=== PATIENT | female | born 1945 | race Caucasian/White ===

== ENCOUNTER → 2017-04-27 | Outpatient (CLI) | payer MEDICARE, OTHER ==
[~2017-04-27] MED LIST: ALPR.25T PO; ASP325T PO; ASP81CT PO; ASPI-999 PO; HYDR-3729 PO; HYDR12.56 PO; LOSA100T28 PO; LOSA25TA15 PO; OMEP20TA7 PO; OMEP40CA36 PO; PANT40TA3 PO
--- NOTE | 2017-04-27 17:38 | Diagnostic Imaging Report ---
INDICATION: Left lower quadrant pain, history of hysterectomy. Transabdominal and transvaginal pelvic ultrasound performed. FINDINGS: A simple-appearing unilocular cyst measuring 4.9 cm long axis in the right pelvis is present. No normal-appearing ovarian tissue found. No tissue in the right adnexa. The uterus surgically absent. IMPRESSION: Right adnexal cyst 4.9 cm maximal showing no complexity. Dictated by: Dictated on workstation # [id number]
== END ==
LOC: RAD 14:31
PROVIDERS: ATTEND Family Medicine
DX: N83.8 Other noninflammatory disorders of ovary, fallopian tube and broad ligament (principal); Z90.710 Acquired absence of both cervix and uterus
CPT/HCPCS: 76830; 76856

== ENCOUNTER → 2017-06-02 | Outpatient (CLI) | payer MEDICARE, OTHER ==
--- NOTE | 2017-06-02 14:18 | Diagnostic Imaging Report ---
PROCEDURE: CT pelvis without contrast. TECHNIQUE: Multiple contiguous axial images were obtained through the pelvis without the use of intravenous contrast. Sagittal and coronal reformations were performed. INDICATION: Left lower quadrant pain x2 months. FINDINGS: The uterus is absent. There is a cyst in the right adnexa measuring 4 cm, which has a generally benign appearance. There is diverticulosis of the sigmoid colon with thickening of the sigmoid colon bowel wall. There is no mesenteric edema at this time. There is no free fluid or free air. The small bowel visualized appears normal. The appendix is not identified, though no appendicocele or dilated structures demonstrated. No bony abnormalities are demonstrated. The femoral heads are in normal articulation bilaterally without significant degenerative change noted. IMPRESSION: 1. Diverticulosis of the sigmoid colon without changes of acute diverticulitis at this time. 2. There is a simple appearing cyst in the right adnexa measuring 4 cm. Dictated by: Dictated on workstation # [id number]
== END ==
LOC: RAD 09:17
PROVIDERS: ATTEND Family Medicine
DX: K57.30 Diverticulosis of large intestine without perforation or abscess without bleeding (principal); N83.202 Unspecified ovarian cyst, left side
CPT/HCPCS: 72192

== ENCOUNTER → 2017-08-03 | Outpatient (CLI) | payer MEDICARE, OTHER ==
--- NOTE | 2017-08-03 14:39 | Diagnostic Imaging Report ---
Transabdominal and transvaginal pelvic ultrasound. INDICATION: Follow-up ovarian cyst. FINDINGS: There is a 4.6 x 5.1 x 3.6 cm right adnexal cystic lesion with simple appearance. No thickened septations or solid nodule evident. No internal vascularity. When compared to 04/27/2017, no significant change seen. The patient has had hysterectomy. The left ovary is not seen. IMPRESSION: Simple-appearing right adnexal cystic lesion measuring 5.1 cm in size without significant change from 04/27/2017. Dictated by: Dictated on workstation # [id number]
== END ==
LOC: RAD 09:59
PROVIDERS: ATTEND Obstetrics & Gynecology
DX: N83.291 Other ovarian cyst, right side (principal)
CPT/HCPCS: 76830; 76856

== ENCOUNTER 2018-02-01 09:22 | Outpatient (CLI) | payer MEDICARE, OTHER ==
[~2018-02-01] VITALS: Ht 154.9 cm; Wt 81.6 kg
[2018-02-01] MEDS ORDERED: OMEP20CA12 PO (09:47)
[2018-02-01] MEDS ORDERED: APIX5TAB PO (09:47)
[2018-02-02] MEDS ORDERED: PANT40TA2 PO (13:05)
== END 2018-02-01 09:50 ==
LOC: PREOP 09:22
PROVIDERS: ATTEND Surgery
DX: Z01.818 Encounter for other preprocedural examination (principal); K21.9 Gastro-esophageal reflux disease without esophagitis; R05 Cough

== ENCOUNTER 2018-02-02 11:07 | Day surgery (SDC) | payer MEDICARE, OTHER ==
[~2018-02-02] VITALS: Ht 154.9 cm; Wt 81.6 kg
[~2018-02-02 11:07] MED LIST changes: +APIX5TAB PO; +OMEP20CA12 PO
--- OUTSIDE RECORDS SUMMARY | 2018-02-02 11:11 | XMS REPORT ---
Author Author FARZANA LUNA Organization [employer] Address Unknown Phone Unavailable Care Team Providers Care Components Engineer Name Role Phone FARZANA LUNA CP Unavailable Allergies No Known Allergies Problems Problem Type Condition Code Onset Dates Condition Status Problem Cough 786.2 Active Problem Need for prophylactic vaccination and inoculation, Influenza V04.81 Active Problem Unspecified viral infection, in conditions classified elsewhere and of unspecified site 079.99 Active Assessment Encounter for immunization Z23 Active Medications No Known Medications Procedures Procedure Coding System Code Date SINGLE IMMUNIZATION ADMIN CPT-4 42818 Jul 09, 2015 FLUARIX QUAD (3 & UP)-GSK-2014 CPT-4 78581 Jul 09, 2015 Results No Known Results Immunizations Vaccine Administration Date FLUARIX QUAD (3 & UP)-GSK-2014Jul 09, 2015 Summary Purpose [employer] Submission
--- OUTSIDE RECORDS SUMMARY | 2018-02-02 11:11 | XMS REPORT | Clinical Summary ---
Author Author [facility] Organization [facility] Address Unknown Phone Unavailable Care Team Providers Care Back Hoe Operator Name Role Phone Nicholas Hnaks MD PCP Gary Quezada MD Unavailable Hannah Veloz MD Unavailable Source Comments Some departments are not documenting in the electronic medical record. If you do not see the information that you expected, contact Release of Information in the Health Information Management department at [phone] for further assistance in locating additional records.[facility] Allergies Active Allergy Reactions Severity Noted Date Comments Latex RASH, ITCHING 05/06/2013 Current Medications Prescription Sig. Disp. Refills Start End Date Status Date losartan(+) (COZAAR) 100 Take 100 mg by mouth Active mg tablet daily. ALPRAZolam (XANAX) 0.25 Take 0.125 mg by mouth at Active mg tablet bedtime as needed. hydrochlorothiazide Take 12.5 mg by mouth Active (HYDRODIURIL) 12.5 mg Tab every morning. tablet ASCORBATE CALCIUM Take by mouth. Active (VITAMIN C PO) omeprazole DR(+) Take 20 mg by mouth Active (PRILOSEC) 20 mg capsule daily. aspirin 81 mg chewable Take 81 mg by mouth Active tablet daily. naproxen (NAPROSYN) 500 Take 500 mg by mouth Active mg tablet twice daily as needed. 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 History of basal cell carcinoma excision 05/31/2013 Basal cell carcinoma of [place] n[place] 05/31/2013 Family History Medical History Relation Name Comments Heart Disease Father High Cholesterol Father Heart Disease Mother Hypertension Mother Relation Name Status Comments Father Mother Social History Tobacco Use Types Packs/Day Years Used Date Never Smoker Smokeless Tobacco: Never Used Alcohol Use Drinks/Week oz/Week Comments Yes 3 Glasses of 1.8 wine Sex Assigned at Date Recorded Not on file Last Filed Vital Signs Vital Sign Reading Time Taken Blood Pressure 151/77 12/18/2014 10:19 AM CDT Pulse 74 12/18/2014 10:19 AM CDT Temperature 36.4 C (97.5 F) 06/01/2013 7:54 AM CDT Respiratory Rate - - Oxygen Saturation 99% 06/01/2013 7:54 AM CDT Inhaled Oxygen - - Concentration Weight 74.4 kg (164 lb) 12/18/2014 10:19 AM CDT Height 157.5 cm (5' 2") 12/18/2014 10:19 AM CDT Body Mass Index 30 12/18/2014 10:19 AM CDT Plan of Treatment Health Maintenance Due Date Last Done Comments HEPATITIS C SCREENING 1945 PHYSICAL (COMPREHENSIVE) 12/26/1954 EXAM PERTUSSIS VACCINE 12/26/1958 TETANUS VACCINE 12/26/1964 BREAST CANCER SCREENING 1987 COLORECTAL CANCER 12/26/1997 SCREENING SHINGLES VACCINE 2007 OSTEOPOROSIS SCREENING 12/26/2012 PREVNAR/PNEUMOVAX (#1) 12/26/2012 INFLUENZA VACCINE 07/02/2018 Results Not on filefrom Last 3 Months
--- OUTSIDE RECORDS SUMMARY | 2018-02-02 11:11 | XMS REPORT | Continuity of Care Document ---
Author Author [employer] Organization [facility] Address Unknown Phone Unavailable Care Team Providers Care Aviation Electrician Name Role Phone [employer] Unavailable Unavailable Problems Medications Allergies, Adverse Reactions, Alerts Immunizations Results Vital Signs Encounters Location Location Details Encounter Type Encounter Number Reason For Visit Attending Provider ADM Date DC Date Status Source O [id number] STEPHEN CONNER 05/06/2013 05/06/2013 Active [facility] [place] 11/07/2017 Active [facility] Procedures Plan of Care Social History Assessment and Plan Family History Advance Directives Functional Status
--- OUTSIDE RECORDS SUMMARY | 2018-02-02 11:11 | XMS REPORT ---
Author Author FARZANA LUNA Organization [employer] Address Unknown Phone Unavailable Care Team Providers Care Farmworker Fur Name Role Phone FARZANA LUNA CP Unavailable [...] Medications Procedures Procedure Coding System Code Date PCV 13 CPT-4 11681 Jul 20, 2015 SINGLE IMMUNIZATION ADMIN CPT-4 94478 Jul 20, 2015 TDAP (BOOSTRIX) CPT-4 01369 Jul 20, 2015 IMMUNIZATION ADMIN, EACH ADD (please include units) CPT-4 23105 Jul 20, 2015 Results No Known Results Immunizations Vaccine Administration Date TDAP (BOOSTRIX) Jul 20, 2015 PCV 13 Jul 20, 2015 Summary Purpose [employer] Submission
--- OUTSIDE RECORDS SUMMARY | 2018-02-02 11:12 | XMS REPORT | Continuity of Care Document ---
Author Author [facility] Address Unknown Phone Unavailable Allergies Active Description Code Type Severity Reaction Onset Reported/Identified Relationship to Patient Clinical Status Yes No Known Drug Allergies [id number] Drug Allergy Unknown N/A 05/20/2016 Medications There is no data. Problems Date Dx Coded Attending Type Code Diagnosis Diagnosed By 10/08/2010 Ot 401.9 10/08/2010 Ot 427.81 10/08/2010 Ot 786.59 10/26/2010 Ot 401.9 10/26/2010 Ot 433.30 10/26/2010 Ot 530.81 10/26/2010 Ot 785.0 10/26/2010 Ot 785.1 10/26/2010 Ot 786.59 10/26/2010 Ot V58.66 10/26/2010 Ot V58.69 01/09/2011 Ot 780.2 SYNCOPE AND COLLAPSE 04/19/2011 Ot 307.81 TENSION HEADACHE 04/19/2011 Ot 784.0 HEADACHE 05/10/2012 Ot 530.81 ESOPHAGEAL REFLUX 05/10/2012 Ot 553.3 DIAPHRAGMATIC HERNIA 05/10/2012 Ot V58.69 OTH MED,LT, CURRENT USE 07/29/2013 FARZANA LUNA APRN V04.81 FLU SHOT 07/29/2013 FORD GAMING APRN N V04.81 FLU SHOT 11/03/2014 FORD GAMING APRN N 079.99 VIRAL SYNDROME 11/03/2014 FORD GAMING APRN N 786.2 COUGH 01/19/2015 FORD GAMING APRN N 465.9 ACUTE UPPER RESPIRATORY INFECTIONS OF UNSPECIFIED SITE 03/05/2015 Ot 785.9 03/05/2015 Ot 785.1 03/05/2015 Ot 786.59 03/05/2015 Ot 785.9 03/05/2015 Ot 272.0 03/05/2015 Ot 433.10 03/05/2015 Ot 793.89 03/05/2015 Ot 793.80 03/05/2015 Ot V67.9 03/05/2015 Ot V16.41 03/05/2015 Ot V88.01 03/05/2015 Ot V72.84 03/05/2015 ALFREDO LOCKE FACC, ALI FACP CCDS Ot 401.9 03/05/2015 ALFREDO LOCKE FACC, ALI FACP CCDS Ot 786.09 03/05/2015 ALFREDO LOCKE FACC, ALI FACP CCDS Ot 401.9 03/05/2015 ALFREDO LOCKE FACC, ALI FACP CCDS Ot 786.09 03/24/2015 CARLITADELMAR TRANSFUSION AIDE Ot V76.12 01/20/2016 ALFREDO LOCKE FACC, ALI FACP CCDS Ot I10 ESSENTIAL (PRIMARY) HYPERTENSION 01/20/2016 ALFREDO LOCKE FACC, ALI FACP CCDS Ot I48.91 UNSPECIFIED ATRIAL FIBRILLATION 01/20/2016 ALFREDO LOCKE FACC, ALI FACP CCDS Ot 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 01/20/2016 ALFREDO LOCKE FACC, ALI FACP CCDS Ot M62.89 OTHER SPECIFIED DISORDERS OF MUSCLE 01/20/2016 ALFREDO LOCKE FACC, ALI FACP CCDS Ot R06.09 OTHER FORMS OF DYSPNEA 01/21/2016 ALFREDO LOCKE FACC, ALI FACP CCDS Ot I10 ESSENTIAL (PRIMARY) HYPERTENSION 01/21/2016 ALFREDO LOCKE FACC, ALI FACP CCDS Ot I48.91 UNSPECIFIED ATRIAL FIBRILLATION 01/21/2016 ALFREDO LOCKE FACC, ALI FACP CCDS Ot 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 01/21/2016 ALFREDO LOCKE FACC, ALI FACP CCDS Ot M62.89 OTHER SPECIFIED DISORDERS OF MUSCLE 01/21/2016 ALFREDO LOCKE FACC, ALI FACP CCDS Ot R06.09 OTHER FORMS OF DYSPNEA 02/03/2016 ALFREDO LOCKE FACC, ALI FACP CCDS Ot I10 ESSENTIAL (PRIMARY) HYPERTENSION 02/03/2016 ALFREDO LOCKE FACC, ALI FACP CCDS Ot I48.91 UNSPECIFIED ATRIAL FIBRILLATION 02/03/2016 ALFREDO LOCKE FACC, ALI FACP CCDS Ot 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 02/03/2016 ALFREDO LOCKE FACC, ALI FACP CCDS Ot M62.89 OTHER SPECIFIED DISORDERS OF MUSCLE 02/03/2016 ALFREDO LOCKE FACC, ALI FACP CCDS Ot R06.09 OTHER FORMS OF DYSPNEA 04/28/2016 MIRZA BERRY MD R Ot R10.11 RIGHT UPPER QUADRANT PAIN 05/01/2016 MIRZA BERRY MD R Ot R10.11 RIGHT UPPER QUADRANT PAIN 05/06/2016 MIRZA BERRY MD R Ot R10.11 RIGHT UPPER QUADRANT PAIN 05/13/2016 MIRZA BERRY MD R Ot R10.11 RIGHT UPPER QUADRANT PAIN 05/19/2016 Ot 272.0 PURE HYPERCHOLESTEROLEM 05/19/2016 Ot 793.89 OTH (ABN) FINDINGS ON RADIOLOGICAL EXAMI 05/19/2016 Ot 793.80 UNSPEC ABNORMAL MAMMOGRAM 05/19/2016 Ot V67.9 FOLLOW-UP EXAM NOS 05/19/2016 Ot 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 05/19/2016 Ot V88.01 ACQUIRED ABSENCE OF BOTH CERVIX AND UTER 05/19/2016 Ot V72.84 EXAM PRE- OPERATIVE NOS 05/19/2016 ALFREDO LOCKE FACC, ALI FACP CCDS Ot 401.9 HYPERTENSION NOS 05/19/2016 ALFREDO LOCKE FACC, ALI FACP CCDS Ot 786.09 RESPIRATORY ABNORM NEC 05/19/2016 ALFREDO LOCKE FACElise, ALI FACP CCDS Ot 401.9 HYPERTENSION NOS 05/19/2016 ALFREDO LOCKE FACC, ALI FACP CCDS Ot 786.09 RESPIRATORY ABNORM NEC 05/19/2016 DELMAR ZAZUETA TRANSFUSION AIDE Ot V76.12 OTH SCREEN MAMMO-MALIGN NEOPLASM OF [place] 05/19/2016 ALFREDO LOCKE FACC, ALI FACP CCDS Ot I10 ESSENTIAL (PRIMARY) HYPERTENSION 05/19/2016 ALFREDO LOCKE FACC, ALI FACP CCDS Ot I48.91 UNSPECIFIED ATRIAL FIBRILLATION 05/19/2016 ALFREDO MOELLERC, ALI FACP CCDS Ot 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 05/19/2016 ALFREDO LOCKE FACC, ALI FACP CCDS Ot M62.89 OTHER SPECIFIED DISORDERS OF MUSCLE 05/19/2016 ALFREDO LOCKE FACC, ALI FACP CCDS Ot R06.09 OTHER FORMS OF DYSPNEA 05/19/2016 MIRZA BERRY MD R Ot R10.11 RIGHT UPPER QUADRANT PAIN 05/19/2016 MIRZA BERRY MD R Ot R10.11 RIGHT UPPER QUADRANT PAIN 05/19/2016 GUS MONTALVO MD Ot K21.9 GASTRO-ESOPHAGEAL REFLUX DISEASE WITHOUT 05/19/2016 GUS MONTALVO MD, Ot Z01.818 ENCOUNTER FOR OTHER PREPROCEDURAL EXAMIN 05/20/2016 GUS MONTALVO MD Ot K21.0 GASTRO-ESOPHAGEAL REFLUX DISEASE WITH ES 05/20/2016 GUS MONTALVO MD Ot K29.70 GASTRITIS, UNSPECIFIED, WITHOUT BLEEDING 05/20/2016 GUS MONTALVO MD Ot K44.9 DIAPHRAGMATIC HERNIA WITHOUT OBSTRUCTION 05/23/2016 GUS MONTALVO MD Ot K21.0 GASTRO-ESOPHAGEAL REFLUX DISEASE WITH ES 05/23/2016 GUS MONTALVO MD Ot K29.70 GASTRITIS, UNSPECIFIED, WITHOUT BLEEDING 05/23/2016 GUS MONTALVO MD Ot K44.9 DIAPHRAGMATIC HERNIA WITHOUT OBSTRUCTION 05/23/2016 GUS MONTALVO MD Ot K21.0 GASTRO-ESOPHAGEAL REFLUX DISEASE WITH ES 05/23/2016 GUS MONTALVO MD Ot K29.70 GASTRITIS, UNSPECIFIED, WITHOUT BLEEDING 05/23/2016 GUS MONTALVO MD Ot K44.9 DIAPHRAGMATIC HERNIA WITHOUT OBSTRUCTION 05/25/2016 GUS MONTALVO MD Ot K40.90 UNIL INGUINAL HERNIA, W/O OBST OR GANGR, 05/25/2016 GUS MNOTALVO MD Ot K82.8 OTHER SPECIFIED DISEASES OF GALLBLADDER 05/25/2016 GUS MONTALVO MD, Ot Z01.818 ENCOUNTER FOR OTHER PREPROCEDURAL EXAMIN 05/26/2016 GUS MONTALVO MD Ot I10 ESSENTIAL (PRIMARY) HYPERTENSION 05/26/2016 GUS MONTALVO MD Ot I48.91 UNSPECIFIED ATRIAL FIBRILLATION 05/26/2016 GUS MONTALVO MD Ot K81.1 CHRONIC CHOLECYSTITIS 05/26/2016 GUS MONTALVO MD Ot Z79.899 OTHER SENIOR LIVING (CURRENT) DRUG THERAPY 05/27/2016 GUS MONTALVO MD Ot K40.90 UNIL INGUINAL HERNIA, W/O OBST OR GANGR, 05/27/2016 GUS MONTALVO MD Ot K82.8 OTHER SPECIFIED DISEASES OF GALLBLADDER 05/27/2016 GUS MONTALVO MD Ot Z01.818 ENCOUNTER FOR OTHER PREPROCEDURAL EXAMIN 05/30/2016 ADRIANA LOCKE, MIRZA R Ot R10.11 RIGHT UPPER QUADRANT PAIN 05/31/2016 GUS MONTALVO MD Ot K40.90 UNIL INGUINAL HERNIA, W/O OBST OR GANGR, 05/31/2016 GUS MONTALVO MD Ot K82.8 OTHER SPECIFIED DISEASES OF GALLBLADDER 05/31/2016 GUS MONTALVO MD, Ot Z01.818 ENCOUNTER FOR OTHER PREPROCEDURAL EXAMIN 06/02/2016 GUS MONTALVO MD Ot I10 ESSENTIAL (PRIMARY) HYPERTENSION 06/02/2016 GUS MONTALVO MD, Ot I48.91 UNSPECIFIED ATRIAL FIBRILLATION 06/02/2016 GUS MONTALVO MD, Ot K81.1 CHRONIC CHOLECYSTITIS 06/02/2016 GUS MONTALVO MD, Ot Z79.899 OTHER SENIOR LIVING (CURRENT) DRUG THERAPY 04/24/2017 Ot 272.0 PURE HYPERCHOLESTEROLEM 04/24/2017 Ot 793.89 OTH (ABN) FINDINGS ON RADIOLOGICAL EXAMI 04/24/2017 Ot 793.80 UNSPEC ABNORMAL MAMMOGRAM 04/24/2017 Ot V67.9 FOLLOW-UP EXAM NOS 04/24/2017 Ot 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 04/24/2017 Ot V88.01 ACQUIRED ABSENCE OF BOTH CERVIX AND UTER 04/24/2017 Ot V72.84 EXAM PRE- OPERATIVE NOS 04/24/2017 ALFREDO LOCKE FACC, ALEXANDRA FACP CCDS Ot 401.9 HYPERTENSION NOS 04/24/2017 ALFREDO LOCKE FACC, ALI FACP CCDS Ot 786.09 RESPIRATORY ABNORM NEC 04/24/2017 ALFREDO LOCKE FACC, ALI FACP CCDS Ot 401.9 HYPERTENSION NOS 04/24/2017 ALFREDO LOCKE FACC, ALI FACP CCDS Ot 786.09 RESPIRATORY ABNORM NEC 04/24/2017 DELMAR ZAZUETA W TRANSFUSION AIDE Ot V76.12 OTH SCREEN MAMMO-MALIGN NEOPLASM OF [place] 04/24/2017 ALFREDO LOCKE FACC, ALI FACP CCDS Ot I10 ESSENTIAL (PRIMARY) HYPERTENSION 04/24/2017 ALFREDO LOCKE FACC, ALI FACP CCDS Ot I48.91 UNSPECIFIED ATRIAL FIBRILLATION 04/24/2017 ALFREDO LOCKE FACC, ALI FACP CCDS Ot 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 04/24/2017 ALFREDO LOCKE FACElise, ALEXANDRA FACP CCDS Ot M62.89 OTHER SPECIFIED DISORDERS OF MUSCLE 04/24/2017 ALFREDO LOCKE FACC, ALEXANDRA FACP CCDS Ot R06.09 OTHER FORMS OF DYSPNEA 04/24/2017 MIRZA BERRY MD R Ot R10.11 RIGHT UPPER QUADRANT PAIN 04/24/2017 MIRZA BERRY MD R Ot R10.11 RIGHT UPPER QUADRANT PAIN 04/28/2017 MIRZA BERRY MD R Ot N83.8 OTH NONINFLAMMATORY DISORD OF OVARY, FAL 04/28/2017 ADRIANA LOCKE MIRZA R Ot Z90.710 ACQUIRED ABSENCE OF BOTH CERVIX AND UTER 05/03/2017 MIRZA BERRY MD R Ot N83.8 OTH NONINFLAMMATORY DISORD OF OVARY, FAL 05/03/2017 MIRZA BERRY MD R Ot Z90.710 ACQUIRED ABSENCE OF BOTH CERVIX AND UTER 05/26/2017 MIRZA BERRY MD R Ot N83.8 OTH NONINFLAMMATORY DISORD OF OVARY, FAL 05/26/2017 MIRZA BERRY MD R Ot Z90.710 ACQUIRED ABSENCE OF BOTH CERVIX AND UTER 06/01/2017 Ot 272.0 PURE HYPERCHOLESTEROLEM 06/01/2017 Ot 793.80 UNSPEC ABNORMAL MAMMOGRAM 06/01/2017 Ot V67.9 FOLLOW-UP EXAM NOS 06/01/2017 Ot 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 06/01/2017 Ot V88.01 ACQUIRED ABSENCE OF BOTH CERVIX AND UTER 06/01/2017 Ot V72.84 EXAM PRE- OPERATIVE NOS 06/01/2017 ALFREDO LOCKE FACC, ALI FACP CCDS Ot 401.9 HYPERTENSION NOS 06/01/2017 ALFREDO LOCKE FACC, ALI FACP CCDS Ot 786.09 RESPIRATORY ABNORM NEC 06/01/2017 ALFREDO LOCKE FACC, ALI FACP CCDS Ot 401.9 HYPERTENSION NOS 06/01/2017 ALFREDO LOCKE FACC, ALI FACP CCDS Ot 786.09 RESPIRATORY ABNORM NEC 06/01/2017 DELMAR ZAZUETA TRANSFUSION AIDE Ot V76.12 OTH SCREEN MAMMO-MALIGN NEOPLASM OF [place] 06/01/2017 ALFREDO LOCKE FACC, ALI FACP CCDS Ot I10 ESSENTIAL (PRIMARY) HYPERTENSION 06/01/2017 ALFREDO LOCKE FACC, ALEXANDRA FACP CCDS Ot I48.91 UNSPECIFIED ATRIAL FIBRILLATION 06/01/2017 ALFREDO LOCKE FACC, ALEXANDRA FACP CCDS Ot 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 06/01/2017 ALFREDO LOCKE FACC, ALEXANDRA FACP CCDS Ot M62.89 OTHER SPECIFIED DISORDERS OF MUSCLE 06/01/2017 ALFREDO LOCKE FACC, ALEXANDRA FACP CCDS Ot R06.09 OTHER FORMS OF DYSPNEA 06/01/2017 MIRZA BERRY MD R Ot R10.11 RIGHT UPPER QUADRANT PAIN 06/01/2017 MIRZA BERRY MD R Ot R10.11 RIGHT UPPER QUADRANT PAIN 06/01/2017 MIRZA BERRY MD Ot N83.8 OTH NONINFLAMMATORY DISORD OF OVARY, FAL 06/01/2017 MIRZA BERRY MD R Ot Z90.710 ACQUIRED ABSENCE OF BOTH CERVIX AND UTER 06/26/2017 MIRZA BERRY MD Ot K57.30 DVRTCLOS OF LG INT W/O PERFORATION OR AB 06/26/2017 MIRZA BERRY MD R Ot N83.202 UNSPECIFIED OVARIAN CYST, LEFT SIDE 07/27/2017 Ot 272.0 PURE HYPERCHOLESTEROLEM 07/27/2017 Ot 793.80 UNSPEC ABNORMAL MAMMOGRAM 07/27/2017 Ot V67.9 FOLLOW-UP EXAM NOS 07/27/2017 Ot 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 07/27/2017 Ot V88.01 ACQUIRED ABSENCE OF BOTH CERVIX AND UTER 07/27/2017 Ot V72.84 EXAM PRE- OPERATIVE NOS 07/27/2017 ALFREDO LOCKE FACC, ALEXANDRA FACP CCDS Ot 401.9 HYPERTENSION NOS 07/27/2017 ALFREDO LOCKE FACC, ALEXANDRA FACP CCDS Ot 786.09 RESPIRATORY ABNORM NEC 07/27/2017 ALFREDO LOCKE FACC, ALEXANDRA FACP CCDS Ot 401.9 HYPERTENSION NOS 07/27/2017 ALFREDO LOCKE FACC, ALEXANDRA FACP CCDS Ot 786.09 RESPIRATORY ABNORM NEC 07/27/2017 DELMAR ZAZUETA TRANSFUSION AIDE Ot V76.12 OTH SCREEN MAMMO-MALIGN NEOPLASM OF [place] 07/27/2017 ALFREDO LOCKE FACC, ALEXANDRA FACP CCDS Ot I10 ESSENTIAL (PRIMARY) HYPERTENSION 07/27/2017 ALFREDO LOCKE FACC, ALEXANDRA FUNG CCDS Ot I48.91 UNSPECIFIED ATRIAL FIBRILLATION 07/27/2017 ALFREDO LOCKE FACC, ALEXANDRA FUNG CCDS Ot 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 07/27/2017 ALEXANDRA FUENTES MD, FACCP CCDS Ot M62.89 OTHER SPECIFIED DISORDERS OF MUSCLE 07/27/2017 ALEXANDRA FUENTES MD, FACC, FACP CCDS Ot R06.09 OTHER FORMS OF DYSPNEA 07/27/2017 MIRZA BERRY MD R Ot R10.11 RIGHT UPPER QUADRANT PAIN 07/27/2017 MIRZA BERRY MD, Ot R10.11 RIGHT UPPER QUADRANT PAIN 07/27/2017 MIRZA BERRY MD Ot N83.8 OTH NONINFLAMMATORY DISORD OF OVARY, FAL 07/27/2017 MIRZA BERRY MD Ot Z90.710 ACQUIRED ABSENCE OF BOTH CERVIX AND UTER 07/27/2017 MIRZA BERRY MD Ot K57.30 DVRTCLOS OF LG INT W/O PERFORATION OR AB 07/27/2017 MIRZA BERRY MD R Ot N83.202 UNSPECIFIED OVARIAN CYST, LEFT SIDE 08/09/2017 SALVATORE ZAMUDIO DO S Ot N83.291 OTHER OVARIAN CYST, RIGHT SIDE 08/28/2017 SALVATORE ZAMUDIO DO S Ot N83.291 OTHER OVARIAN CYST, RIGHT SIDE 01/31/2018 MIRZA BERRY MD Ot K21.0 GASTRO-ESOPHAGEAL REFLUX DISEASE WITH ES 01/31/2018 MIRZA BERRY MD Ot R05 COUGH Procedures There is no data. Results Test Result Range Methicillin resistant Staphylococcus aureus (MRSA) screening culture - 09:20 Methicillin resistant Staphylococcus aureus (MRSA) screening culture NEG NRG Complete blood count (CBC) with automated white blood cell (WBC) differential - 05/26/16 09:45 Blood leukocytes automated count (number/volume) 5.4 10*3/uL 4.3-11.0 Blood erythrocytes automated count (number/volume) 3.96 10*6/uL 4.35-5.85 Venous blood hemoglobin measurement (mass/volume) 12.1 g/dL 11.5-16.0 Blood hematocrit (volume fraction) 36 % 35-52 Automated erythrocyte mean corpuscular volume 90 [foz_us] 80-99 Automated erythrocyte mean corpuscular hemoglobin (mass per erythrocyte) 31 pg 25-34 Automated erythrocyte mean corpuscular hemoglobin concentration measurement ( mass/volume) 34 g/dL 32-36 Automated erythrocyte distribution width ratio 12.8 % 10.0-14.5 Automated blood platelet count (count/volume) 238 10*3/uL 130-400 Automated blood platelet mean volume measurement 9.4 [foz_us] 7.4-10.4 Automated blood neutrophils/100 leukocytes 51 % 42-75 Automated blood lymphocytes/100 leukocytes 25 % 12-44 Blood monocytes/100 leukocytes 14 % 0-12 Automated blood eosinophils/100 leukocytes 8 % 0-10 Automated blood basophils/100 leukocytes 1 % 0-10 Blood neutrophils automated count (number/volume) 2.7 10*3 1.8-7.8 Blood lymphocytes automated count (number/volume) 1.4 10*3 1.0-4.0 Blood monocytes automated count (number/volume) 0.8 10*3 0.0-1.0 Automated eosinophil count 0.5 10*3/uL 0.0-0.3 Automated blood basophil count (count/volume) 0.1 10*3/uL 0.0-0.1 Whole blood basic metabolic panel - 05/26/16 09:45 Serum or plasma sodium measurement (moles/volume) 140 mmol/L 135-145 Serum or plasma potassium measurement (moles/volume) 3.9 mmol/L 3.6-5.0 Serum or plasma chloride measurement (moles/volume) 109 mmol/L 98-107 Carbon dioxide 23 mmol/L 21-32 Serum or plasma anion gap determination (moles/volume) 8 mmol/L 5-14 Serum or plasma urea nitrogen measurement (mass/volume) 22 mg/dL 7-18 Serum or plasma creatinine measurement (mass/volume) 0.76 mg/dL 0.60-1.30 Serum or plasma urea nitrogen/creatinine mass ratio 29 NRG Serum or plasma creatinine measurement with calculation of estimated glomerular filtration rate > NRG Serum or plasma glucose measurement (mass/volume) 89 mg/dL 70-105 Serum or plasma calcium measurement (mass/volume) 9.8 mg/dL 8.5-10.1 Encounters ACCT No. Visit Date/Time Discharge Status Pt. Type Provider Facility Loc./Unit Complaint [id number] 01/19/2015 08:22:00 01/19/2015 23:59:59 CLS Outpatient FORD GAMING APRN [id number] 11/03/2014 13:13:00 11/03/2014 23:59:59 CLS Outpatient FARZANA LUNA APRN Bertha [id number] 07/29/2013 15:12:00 07/29/2013 23:59:59 CLS Outpatient FARZANA LUNA APRN [facility]tha [facility] 03/06/2015 04:03:48 ACT Document Registration [id number] 10/05/2016 12:28:00 10/05/2016 23:59:00 DIS Outpatient Aquiles Berry [id number] 02/01/2018 09:22:00 02/01/2018 09:50:00 DIS Outpatient GUS MONTALVO MD [facility] PREOP EGD [id number] 01/30/2018 10:33:00 01/30/2018 23:59:59 CLS Outpatient MIRZA BERRY MD [facility] RAD REFLUX ESOPHAGITIS [id number] 08/03/2017 09:59:00 08/03/2017 23:59:59 CLS Outpatient GUILHERMESALVATORE MCCARTY DO S [facility] RAD SIMPLE OVARIAN CYST [id number] 06/02/2017 09:17:00 06/02/2017 23:59:59 CLS Outpatient MIRZA BERRY MD [facility] RAD PELVIC PAIN IN FEMALE [id number] 04/27/2017 14:31:00 04/27/2017 23:59:59 CLS Outpatient MIRZA BERRY MD [facility] RAD PAIN OL QUANDRANT [id number] 07/22/2016 18:36:00 07/22/2016 23:59:59 CLS Outpatient COLTHARP DAVID GASTELUM [facility] QUICK WHEEZY COUGH, BODY ACHES [id number] 05/26/2016 08:57:00 05/26/2016 15:00:00 DIS Outpatient GUS MONTALVO MD [facility] SDC BILIARY DYSKNESIA [id number] 05/25/2016 09:00:00 05/25/2016 12:15:00 DIS Outpatient GUS MONTALVO MD [facility] PREOP DYSKNESIA [id number] 05/20/2016 12:10:00 05/20/2016 14:40:00 DIS Outpatient GUS MONTALVO MD [facility] SDC REFLUX [id number] 05/19/2016 06:11:00 05/19/2016 12:50:00 DIS Outpatient GUS MONTALVO MD [facility] PREOP REFLUX [id number] 05/05/2016 11:46:00 05/05/2016 23:59:59 CLS Outpatient MIRZA BERRY MD [facility] CARD RUQ PAIN [id number] 04/25/2016 15:53:00 04/25/2016 23:59:59 CLS Outpatient MIRZA BERRY MD [facility] RAD RUQ PAIN [id number] 01/19/2016 08:11:00 01/19/2016 23:59:59 CLS Outpatient ALFREDO LOCKE FACC, ALEXANDRA FUNG CCDS [facility] CARD AFIB,HTN, EXCERSICE INDUCED LEG FATIGUE [id number] 03/05/2015 10:20:00 03/05/2015 23:59:59 CLS Outpatient DELMAR ZAZUETA [facility] RAD SCREENING [id number] 03/20/2014 07:33:00 03/20/2014 23:59:59 CLS Outpatient ALEXANDAR FUENTES MD, FACC FACP CCDS [facility] CARD DYPSENIA [id number] 03/18/2014 09:13:00 03/18/2014 23:59:59 CLS Outpatient ALFREDO LOCKE FACC, ALEXANDRA FACVashti CCDS [facility] CARD HYPERTENSION DYSPENIA [id number] 02/02/2018 13:15:00 PEN Preadmit GUS MONTALVO MD [facility] ENDO REFLUX/COUGH [id number] 03/05/2015 10:20:00 Document Registration [id number] 07/06/2012 10:30:00 Document Registration [id number] 05/09/2012 06:42:00 Document Registration [id number] 05/08/2012 08:11:00 Document Registration [id number] 04/24/2012 14:55:00 Document Registration [id number] 04/24/2012 10:30:00 Document Registration [id number] 11/10/2011 07:11:00 Document Registration [id number] 04/19/2011 11:07:00 Document Registration [id number] 11/25/2010 08:42:00 Document Registration [id number] 11/10/2010 07:30:00 Document Registration [id number] 10/26/2010 08:07:00 Document Registration [id number] 10/26/2010 08:03:00 Document Registration [id number] 10/18/2010 13:03:00 Document Registration [id number] 10/18/2010 12:58:00 Document Registration [id number] 10/06/2010 10:10:00 Document Registration
--- NOTE | 2018-02-02 11:15 | Conscious Sedation/ASA ---
Conscious Sedation Pre-Proced Time Reviewed: 11:10 ASA Class: 2 Airway Mallampati Classification: (robinson appropriate class) I. II. III, IV Lungs Heart ASA score ASA 1: a normal healthy patient ASA 2: a patient with a mild systemic disease (mid diabetes, controlled hypertension, obesity ASA 3: a patient with a severe systemic disease that limits activity (angina , COPD, prior Myocardial infarction) ASA 4: a patient with an incapacitating disease that is a constant threat to life (CHF, renal failure) ASA 5: a moribund patient not expected to survive 24 hrs. (ruptured aneurysm) ASA 6: a declared brain patient whose organs are being harvested. For emergent operations, add the letter E after the classification Grade 2 Sedation Plan: Analgesia, Amnesia, Plan communicated to team members, Discussed options with patient/fam, Discussed risks with patient/fam Note The patient is an appropriate candidate to undergo the planned procedure, sedation, and anesthesia. The patient immediately re-assessed prior to indication. GUS MONTALVO MD February 02, 2018 11:15 am
--- NOTE | 2018-02-02 11:16 | Progress Note-Pre Operative ---
Pre-Operative Progress Note H&P Reviewed The H&P was reviewed, patient examined and no changes noted. Date Seen by Provider: February 02, 2018 Time Seen by Provider: 11:10 Date H&P Reviewed: February 02, 2018 Time H&P Reviewed: 11:10 Pre-Operative Diagnosis: GERD, chronic cough GUS MONTALVO MD February 02, 2018 11:16 am
[2018-02-02] MEDS ORDERED: NS IV 500 ML 500 ML IV PRN (11:24)
[2018-02-02] MEDS ORDERED: NS IV 500 ML 500 ML ONE (11:24)
[2018-02-02] MEDS ORDERED: MIDAZOLAM 2 MG/2 ML (VERSED) VIAL ONE ×4 (11:27→12:25)
[2018-02-02] MEDS ORDERED: fentaNYL INJECTION 100 MCG/2 ML AMP ONE (11:28)
[2018-02-02] MEDS ORDERED: LIDOCAINE JELLY 2% (XYLOCAINE) 5 ML TUBE ONE (11:28)
[2018-02-02] MEDS ORDERED: HURRICAINE EXT TUBE (BENZOCAINE) ONE (11:28)
[2018-02-02] MEDS ORDERED: ONDANSETRON 4 MG/2 ML (SDV) Z0FRAN IV PRN (11:30)
[2018-02-02] MEDS ORDERED: ACETAMINOPHEN 325 MG TABLET/CAPLET (TYLENOL) PO PRN (11:30)
[2018-02-02] MEDS ORDERED: morphine INJ 10 MG/ML 1ML (SYR OR VIAL) IV PRN (11:30)
[2018-02-02] MEDS ORDERED: LIDOCAINE JELLY 2% (XYLOCAINE) 5 ML TUBE MM PRN (11:30)
[2018-02-02] MEDS ORDERED: HURRICAINE EXT TUBE (BENZOCAINE) XX PRN (11:30)
[2018-02-02] MEDS ORDERED: HYDROcodone/APAP 5 MG/325 MG (LORTAB) TAB PO PRN (11:30)
[2018-02-02 11:38] VITALS: BP 163/83
[2018-02-02] MEDS: fentaNYL INJECTION 100 MCG/2 ML AMP IVP PRN ×2 (12:10→12:25)
[2018-02-02] MEDS: MIDAZOLAM 2 MG/2 ML (VERSED) VIAL IVP PRN ×4 (12:12→12:35)
--- NOTE | 2018-02-02 13:04 | Progress Note-Post Operative ---
Post-Operative Progess Note Surgeon (s)/Side Show Entertainer (s) Surgeon GUS MONTALVO MD Side Show Entertainer: none Pre-Operative Diagnosis GERD, chronic cough Post-Operative Diagnosis reflux esophagitis(class B), mild distal eosphageal stricture, moderate HH(3cm), moderate gastritis. Procedure & Operative Findings Date of Procedure 02/02/18 Procedure Performed/Findings EGD with bx and balloon dilatation. Anesthesia Type CS Estimated Blood Loss Estimated blood loss (mL): minimal Specimens/Packing Specimens Removed GE jxn, antrum GUS MONTALVO MD February 02, 2018 1:04 pm
[2018-02-02] MEDS ORDERED: PANT40TA2 PO (13:05)
--- NOTE | 2018-02-02 13:05 | Discharge Inst-Surgical ---
D/C Lap Instructions-KIDO New, Converted, or Re-Newed RX: RX on Chart Follow Up Appt in 6 weeks Activity as tolerated High Fiber Diet 25g or more per day Avoid Alcohol, Caffeine, Spicy [employer] and Acid foods. Drink 64 fluid oz or more of fluids per day. Symptoms to Report: Fever over 101 degree F, Nausea/Vomiting If any problems/questions: Contact your physician or go to Emergency Room GUS MONTALVO MD February 02, 2018 1:05 pm
[2018-02-02 13:30] VITALS: BP_SYST 120; BP_SYST 140; BP_DIAS 54; BP_DIAS 70
[2018-02-02 13:44] VITALS: BP 120/54
--- NOTE | 2018-02-02 21:45 | OPERATIVE REPORT ---
DATE OF SERVICE: 02/02/2018 ATTENDING PRIMARY CARE PHYSICIAN: Dr. Berry. PREOPERATIVE DIAGNOSES: Dysphagia, gastroesophageal reflux disease, chronic cough. POSTOPERATIVE DIAGNOSES: Reflux esophagitis class B intrathoracic GE junction, mild distal esophageal stricture, moderate size hiatal hernia approximately 3 cm in size. PROCEDURE: EGD with biopsy and balloon dilatation. SURGEON: Gus Montalvo MD ANESTHESIA: Conscious sedation. ESTIMATED BLOOD LOSS: Minimal. FINDINGS: Reflux esophagitis class B, mild distal esophageal stricture, hiatal hernia approximately 3 cm in size, moderate severity gastritis. Pylorus and duodenum appeared normal with no distal obstructions. DISPOSITION: The patient tolerated the procedure well. INDICATIONS: The patient is a 72-year-old female known to us. We had initially seen her for reflux and regurgitation as well as dysphagia. We did an EGD on her in 2009 where a hiatal hernia was identified and then in 2011 with similar findings. She did have worsening pain more in the right upper abdominal quadrant and was found to have gallbladder polyps and underwent a cholecystectomy on 02/24/2016. She was seen in the office recently and reported a 9-month history of cough as well as reflux and epigastric burning sensation after food bolus. DESCRIPTION OF PROCEDURE: The patient was brought to the endoscopy suite, laid in the left lateral decubitus position. After adequate IV pain and sedating medications and conscious sedation anesthesia, the mouthpiece was applied. The endoscope was then placed in the mouth visualizing the pharynx and hypopharyngeal region. Vocal cords, epiglottis and vallecula identified and appeared to be normal. The endoscope was then gently intubated in the esophageal opening, esophagus insufflated. The endoscope was then advanced to the first, second and third portions of the esophagus. At the level of the GE junction, a reflux esophagitis class B was identified. There was also a Schatzki's ring and distal esophageal stricture identified. This was biopsied with forceps with visualization of good hemostasis. The endoscope was then advanced in the stomach and endoscope retroflexed and there appeared to be a hiatal hernia that was of significant size and moderate at 3 cm. The Schatzki's ring was also identified on the retroflex view. A moderate gastritis was also noted. There were no ulcers, polyps or any neoplasms identified. A biopsy was taken of the antrum with forceps with visualization of good hemostasis. The endoscope was then advanced to the pylorus and into the first and second portion of the duodenum, which appeared normal with no distal obstructions. We then proceeded with dilatation of esophageal stricture. A CRE fixed guidewire balloon was then placed in the stomach and pulled back to the area of the stricture. We first proceeded to 3 atmospheres of pressure with mild resistance. We then proceeded to 4.5 atmospheres of pressure with moderate resistance, which was 19 mm in luminal diameter and left this in place for approximately 60 seconds. The balloon was desufflated and removed. No mucosal tears identified as well as no bleeding. The endoscope was then slowly withdrawn while taking a second look and suctioning of residual air with no additional findings. The patient tolerated the procedure well. We will again proceed with medical management with necessary lifestyle and diet accommodation including small and more frequent meals, avoidance of eating at night as well as head elevation while lying supine. She also needs to avoid caffeinated beverages, spicy, greasy and acidic foods. We will see how the balloon dilatation will help her, however, she does have a significant size hiatal hernia and this appears to be the root cause of her symptoms. If she continues to be symptomatic and she wants to have this repaired fpc, we will offer her a hiatal hernia repair. Before proceeding with this, we would have her undergo esophageal manometry studies to rule out any esophageal dysmotility disorders. Also because of her high BMI, she may opt for hiatal hernia repair with gastric sleeve resection to decrease the incidence of recurrence. Job ID: [id number] DocumentID: [id number] Dictated Date: 02/02/2018 12:54:40 Medical Equipment Sales Date: 02/02/2018 21:44:08 Dictated By: GUS MONTALVO MD [facility]Jose
== END 2018-02-02 14:02 | disposition home or self-care (01) ==
LOC: ENDO 11:07
PROVIDERS: ATTEND Surgery
DX: K22.2 Esophageal obstruction (principal); K21.0 Gastro-esophageal reflux disease with esophagitis; K44.9 Diaphragmatic hernia without obstruction or gangrene; I48.91 Unspecified atrial fibrillation; I10 Essential (primary) hypertension; Z79.01 Long term (current) use of anticoagulants; Z79.899 Other long term (current) drug therapy
CPT/HCPCS: 88305; 88342

== ENCOUNTER → 2018-03-07 | Outpatient (CLI) | payer MEDICARE, OTHER ==
[~2018-03-07] MED LIST changes: +CATHETER FLUSH 10 ML SYR IV PRN; +IOHEXOL 350 MG/ML 100 ML (OMNIPAQUE 350) VIAL IV ONE; +NS 250 ML (IVPB) BAG IV ONE; +PANT40TA2 PO; +RT-ALBUTEROL SULF 2.5 MG/3 ML PRE-MIX VIAL INH ONE; +RT-ALBUTEROL SULF 2.5 MG/3 ML PRE-MIX VIAL ONE
[2018-03-07 15:53] LABS: BUN/CREATININE RATIO 23; CREATININE SERUM 0.81 MG/DL (0.60-1.30); GFR ESTIMATED > 60
--- NOTE | 2018-03-07 17:41 | Diagnostic Imaging Report ---
PROCEDURE: CT chest with contrast only. TECHNIQUE: Multiple contiguous axial images were obtained through the chest after administration of intravenous contrast. INDICATION: Cough. COMPARISON: None. FINDINGS: There is minimal cardiac enlargement. No pericardial effusion is seen. There is no lymphadenopathy. Central airways are grossly normal. There is some minimal subtle infiltrate seen in the medial right lung base. This could represent inflammatory or infectious etiology. Followup is recommended. The left lung is clear. There is no mass, nodule or effusion. Osseous structures and visualized upper abdominal solid organs are grossly unremarkable. The gallbladder is surgically absent. There is a small hiatal hernia. IMPRESSION: Subtle infiltrate in medial right lung base. Followup recommended. Dictated by: Dictated on workstation # [id number]
== END ==
LOC: RAD 15:18
PROVIDERS: ATTEND Nurse Practitioner Family
DX: R91.8 Other nonspecific abnormal finding of lung field (principal); J98.4 Other disorders of lung
CPT/HCPCS: 36415; 71260; 82565; 84520; 94060; 94726; 94729

== ENCOUNTER → 2018-05-15 | Outpatient (CLI) | payer MEDICARE, OTHER ==
[~2018-05-15] MED LIST changes: -CATHETER FLUSH 10 ML SYR IV PRN; -IOHEXOL 350 MG/ML 100 ML (OMNIPAQUE 350) VIAL IV ONE; -NS 250 ML (IVPB) BAG IV ONE; -RT-ALBUTEROL SULF 2.5 MG/3 ML PRE-MIX VIAL INH ONE; -RT-ALBUTEROL SULF 2.5 MG/3 ML PRE-MIX VIAL ONE
--- NOTE | 2018-05-15 11:29 | Diagnostic Imaging Report ---
PROCEDURE: CT chest without contrast. TECHNIQUE: Multiple contiguous axial images were obtained through the chest without the use of intravenous contrast. INDICATION: Cough and fatigue. FINDINGS: There are no discrete pulmonary nodules or masses. There is a faint infiltrate in medial aspect of the right lung base. There is no pleural or pericardial fluid. There is no pneumothorax. Heart size is normal. There is no pathologically enlarged adenopathy in the chest. There are degenerative changes in the spine. There is some fatty infiltration of the liver. Remainder of the intra-abdominal structures are unremarkable. IMPRESSION: Faint infiltrate in the medial aspect of the right lung base. This is unchanged when compared to prior examination. Mild fatty infiltration of the liver. Degenerative changes in the spine. Dictated by: Dictated on workstation # [id number]
== END ==
LOC: RAD 09:49
PROVIDERS: ATTEND Nurse Practitioner Family
DX: R91.8 Other nonspecific abnormal finding of lung field (principal)
CPT/HCPCS: 71250

== ENCOUNTER 2018-06-03 12:27 | Inpatient (IN) | payer MEDICARE, OTHER ==
[~2018-06-03] VITALS: Ht 157.5 cm; Wt 81.7 kg
[~2018-06-03 12:27] MED LIST changes: -LOSA100T28 PO; +LOSA100T8 PO
[2018-06-03] MEDS ORDERED: CATHETER FLUSH 10 ML SYR IV PRN (14:00)
[2018-06-03] MEDS ORDERED: IOHEXOL 350 MG/ML 100 ML (OMNIPAQUE 350) VIAL IV ONE (14:00)
[2018-06-03] MEDS ORDERED: NS 250 ML (IVPB) BAG IV ONE (14:00)
[2018-06-03 14:03] LABS: BASOPHILS # (AUTO) 0.1 10^3/uL (0.0-0.1); BASOPHILS % (AUTO) 1 % (0-10); EOSINOPHILS # (AUTO) 0.5 10^3/uL (0.0-0.3); EOSINOPHILS % (AUTO) 6 % (0-10); HEMATOCRIT 38 % (35-52); HEMOGLOBIN 13.1 G/DL (11.5-16.0); LYMPHOCYTES # (AUTO) 1.3 X 10^3 (1.0-4.0); LYMPHOCYTES % (AUTO) 17 % (12-44); MEAN CORPUSCULAR HGB CONC 34 G/DL (32-36); MEAN CORPUSCULAR VOLUME 89 FL (80-99); MEAN PLATELET VOLUME 9.6 FL (7.4-10.4); MONOCYTES # (AUTO) 0.8 X 10^3 (0.0-1.0); MONOCYTES % (AUTO) 10 % (0-12); NEUTROPHILS # (AUTO) 5.2 X 10^3 (1.8-7.8); NEUTROPHILS % (AUTO) 66 % (42-75); PLATELET COUNT 261 10^3/uL (130-400); RED CELL DISTRIBUTION WIDTH 13.3 % (10.0-14.5); WHITE BLOOD COUNT 7.8 10^3/uL (4.3-11.0)
[2018-06-03 14:11] LABS: BILIRUBIN,URINE NEGATIVE (NEGATIVE); CLARITY,URINE CLEAR; COLOR,URINE YELLOW; GLUCOSE, URINE (UA) NEGATIVE (NEGATIVE); KETONES,URINE NEGATIVE (NEGATIVE); LEUKOCYTE ESTERASE ,URINE 1+ (NEGATIVE); NITRITE,URINE NEGATIVE (NEGATIVE); PH,URINE 7 (5-9); PROTEIN,URINE NEGATIVE (NEGATIVE); UROBILINOGEN,URINE NORMAL (NORMAL)
[2018-06-03 14:16] LABS: MEAN CORPUSCULAR HEMOGLOBIN 30 PG (25-34)
[2018-06-03 14:17] LABS: ALANINE AMINOTRANSFERASE 22 U/L (0-55); ALBUMIN 3.9 GM/DL (3.2-4.5); ALKALINE PHOSPHATASE 71 U/L (40-136); AMYLASE 32 U/L (25-125); BILIRUBIN,TOTAL 0.4 MG/DL (0.1-1.0); BUN/CREATININE RATIO 24; CALCIUM 10.1 MG/DL (8.5-10.1); CARBON DIOXIDE 23 MMOL/L (21-32); CHLORIDE 108 MMOL/L (98-107); CREATININE SERUM 0.74 MG/DL (0.60-1.30); GFR ESTIMATED > 60; GLUCOSE 88 MG/DL (70-105); LIPASE 13 U/L (8-78); POTASSIUM 3.9 MMOL/L (3.6-5.0); SODIUM 139 MMOL/L (135-145)
[2018-06-03 14:22] LABS: BACTERIA,URINE NEGATIVE /HPF; SQUAMOUS EPITHELIAL CELL,UR 0-2 /HPF; WBC,URINE 0-2 /HPF
--- NOTE | 2018-06-03 14:33 | ED Abdominal Pain ---
General Chief Complaint: Abdominal/GI Problems Stated Complaint: POSS BULDGING HERNIA, UPPER ABD Nursing Triage Note: BULGE IN ABDOMEN. COULD SEE BULGE WHEN LAYING DOWN. 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 She has seen Dr. GAMBINO for an abdominal hernia in the past reports she has not had any surgical corrections for this hernia. She reports that when the pain was at its worst she did actually see a bulge in her abdomen just above her umbilicus. She reports she lied flat on the couch for about 45 minutes prior to coming emergency room and her abdominal pain subsided and the bulging in her abdomen went away. Timing/Duration: 4-6 Hours, Resolved Prior to Arrival Severity/Quality: Severe, Sharp Location: Periumbilical Radiation: No Radiation Activities at Onset: None Associated Symptoms: Denies Symptoms Allergies and Home Medications Allergies Coded Allergies: No Known Drug Allergies (Verified , 06/03/18) Home Medications Alprazolam 0.25 Mg Tablet, 0.25 MG PO HS, (Reported) Apixaban 5 Mg Tablet, 5 MG PO BID, (Reported) Hydrochlorothiazide 12.5 Mg Tablet, 12.5 MG PO DAILY, (Reported) Hydrocodone Bit/Acetaminophen 1 Ea Tablet, 1 EACH PO Q4H Prescribed by: GUS GAMBINO on 06/04/18 1115 Hydrocodone/Acetaminophen 1 Each Tablet, 1 EACH PO PRN, (Reported) Losartan Potassium 100 Mg Tablet, 100 MG PO DAILY, (Reported) Pantoprazole Sodium 40 Mg Tablet.dr, 40 MG PO DAILY Prescribed by: GUS GAMBINO on 02/02/18 1305 Patient Home Medication List Home Medication List Reviewed: Yes Review of Systems Review of Systems Constitutional: see HPI; No chills, No fever Gastrointestinal: See HPI, Abdomen Distended (bulge in her abdominal wall.); Denies Difficulty Swallowing, Denies Nausea Past Fwoyanr-Qrtacy-Lvvwiz Hx Past Med/Social Hx: Reviewed Nursing Past Med/Soc Hx Patient Social History Recent Foreign Travel: No Contact w/Someone Who Travel: No Recent Infectious Disease Expo: No Recent Hopitalizations: No Immunizations Up To Date Date of Pneumonia Vaccine: May 09, 2011 Date of Influenza Vaccine: Jul 17, 2017 Seasonal Allergies Seasonal Allergies: Yes Past Medical History Surgeries: Yes (BILAT ANKLE, 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) Gallbladder Respiratory: Yes Asthma, Sleep Apnea Cardiac: Yes Atrial Fibrillation, Hypertension Neurological: No : No Reproductive Disorders: No Gastrointestinal: Yes Abdominal Hernia, Gastroesophageal Reflux, Hiatal Hernia Musculoskeletal: Yes (ARTHRITIS IN FEET) Arthritis Endocrine: No Cancer: Yes Skin What Type of Treatment Did You: Surgical Intervention Psychosocial: No Integumentary: No Blood Disorders: No Adverse Reaction/Blood Tranf: No Family Medical History Reviewed Nursing Family Hx Physical Exam Vital Signs Vital Signs - First Documented 06/03/18 12:46 Temp 97.3 Pulse 71 Resp 20 B/P (MAP) 166/78 (107) O2 Delivery Room Air Capillary Refill : Less Than 3 Seconds Height/Weight/BMI Height: 5'1.00" Weight: 180lbs. 0oz. 81.089158uo; 34.0 BMI Method:Stated General Appearance: WD/WN, no apparent distress Neck: non-tender, full range of motion, supple, normal inspection Respiratory: chest non-tender, lungs clear, normal breath sounds, no respiratory distress, no accessory muscle use Cardiovascular: normal peripheral pulses, regular rate, rhythm, no edema, no gallop, no JVD, no murmur Gastrointestinal: normal bowel sounds, non tender, soft, no organomegaly, no pulsatile mass, mass (patient has a golf ball size area that is bulging just above her umbilicus. It is nontender when I palpate and her pain has subsided. I am unable to reduce the area on exam.) Back: normal inspection, no CVA tenderness, no vertebral tenderness Neurologic/Psychiatric: alert, normal mood/affect, oriented x 3 Skin: normal color, warm/dry Progress/Results/Core Measures Results/Orders Lab Results Laboratory Tests Test 06/03/18 13:50 06/03/18 14:05 Range/Units White Blood Count 7.8 4.3-11.0 10^3/uL Red Blood Count 4.30 L 4.35-5.85 10^6/uL Hemoglobin 13.1 11.5-16.0 G/DL Hematocrit 38 35-52 % Mean Corpuscular Volume 89 80-99 FL Mean Corpuscular Hemoglobin 30 25-34 PG Mean Corpuscular Hemoglobin Concent 34 32-36 G/DL Red Cell Distribution Width 13.3 10.0-14.5 % Platelet Count 261 130-400 10^3/uL Mean Platelet Volume 9.6 7.4-10.4 FL Neutrophils (%) (Auto) 66 42-75 % Lymphocytes (%) (Auto) 17 12-44 % Monocytes (%) (Auto) 10 0-12 % Eosinophils (%) (Auto) 6 0-10 % Basophils (%) (Auto) 1 0-10 % Neutrophils # (Auto) 5.2 1.8-7.8 X 10^3 Lymphocytes # (Auto) 1.3 1.0-4.0 X 10^3 Monocytes # (Auto) 0.8 0.0-1.0 X 10^3 Eosinophils # (Auto) 0.5 H 0.0-0.3 10^3/uL Basophils # (Auto) 0.1 0.0-0.1 10^3/uL Sodium Level 139 135-145 MMOL/L Potassium Level 3.9 3.6-5.0 MMOL/L Chloride Level 108 H 98-107 MMOL/L Carbon Dioxide Level 23 21-32 MMOL/L Anion Gap 8 5-14 MMOL/L Blood Urea Nitrogen 18 7-18 MG/DL Creatinine 0.74 0.60-1.30 MG/DL Estimat Glomerular Filtration Rate > 60 BUN/Creatinine Ratio 24 Glucose Level 88 70-105 MG/DL Calcium Level 10.1 8.5-10.1 MG/DL Corrected Calcium 10.2 H 8.5-10.1 MG/DL Total Bilirubin 0.4 0.1-1.0 MG/DL Aspartate Amino Transf (AST/SGOT) 19 5-34 U/L Alanine Aminotransferase (ALT/SGPT) 22 0-55 U/L Alkaline Phosphatase 71 40-136 U/L Total Protein 7.0 6.4-8.2 GM/DL Albumin 3.9 3.2-4.5 GM/DL Amylase Level 32 25-125 U/L Lipase 13 8-78 U/L Urine Color YELLOW Urine Clarity CLEAR Urine pH 7 5-9 Urine Specific [place] 1.010 L 1.016-1.022 Urine Protein NEGATIVE NEGATIVE Urine Glucose (UA) NEGATIVE NEGATIVE Urine Ketones NEGATIVE NEGATIVE Urine Nitrite NEGATIVE NEGATIVE Urine Bilirubin NEGATIVE NEGATIVE Urine Urobilinogen NORMAL NORMAL MG/DL Urine Leukocyte Esterase 1+ H NEGATIVE Urine RBC (Auto) NEGATIVE NEGATIVE Urine RBC NONE /HPF Urine WBC 0-2 /HPF Urine Squamous Epithelial Cells 0-2 /HPF Urine Crystals NONE /LPF Urine Bacteria NEGATIVE /HPF Urine Casts NONE /LPF Urine Mucus NEGATIVE /LPF Urine Culture Indicated NO My Orders Orders - OMA GALLARDO Comprehensive Metabolic Panel (06/03/18 13:44) Lipase (06/03/18 13:44) Amylase (06/03/18 13:44) Ua Culture If Indicated (06/03/18 13:44) Saline Lock/Iv-Start (06/03/18 13:44) Cbc With Automated Diff (06/03/18 13:44) Ct Abdomen/Pelvis W (06/03/18 13:44) Iohexol Injection (Omnipaque 350 Mg/Ml 1 (06/03/18 14:00) Sodium Chloride Flush (Catheter Flush Sy (06/03/18 14:00) Ns (Ivpb) (Sodium Chloride 0.9%) (06/03/18 14:00) Pharmacy Communication (Pharmacy Communi (06/03/18 13:49) Medications Given in ED Vital Signs/I&O 06/03/18 12:46 Temp 97.3 Pulse 71 Resp 20 B/P (MAP) 166/78 (107) O2 Delivery Room Air Blood Pressure Mean: 107 Progress Progress Note : Time: 15:44 Progress Note Patient seen and evaluated patient. I spoke to Dr. Lemus regarding her CT findings at this time. He agrees with plan for admission, clear liquid diet, nothing by mouth status after midnight, pain medication and nausea medication. Holding her Elaquis, and surgery to repair a hernia tomorrow at 10 AM. Diagnostic Imaging Diagonstic Imaging: CT Plain Films/CT/US/NM/MRI: abdomen, pelvis Comments NAME: FORD KONG J MED REC#: [id number] PT STATUS: ADM IN : 1945 PHYSICIAN: OMA GALLARDO ADMIT DATE: 06/03/18/4TH Signed Date of Exam: 09/02/18 CT ABDOMEN/PELVIS W PROCEDURE: CT abdomen and pelvis with contrast. TECHNIQUE: Multiple contiguous axial images were obtained through the abdomen and pelvis after administration of intravenous contrast. INDICATION: Umbilical hernia, abdominal pain. COMPARISON: CT of the pelvis dated June 02, 2017. FINDINGS: The lung bases are clear. Diffusely decreased density is noted throughout the liver, consistent with fatty infiltration of the liver. No focal hepatic mass. Tiny hiatal hernia. The spleen is unremarkable. The adrenal glands are unremarkable. The pancreas is unremarkable. Cholecystectomy. Tiny 5 mm and smaller left renal hypodensities are present, too small to completely characterize. Otherwise, the kidneys are unremarkable. Extensive vascular calcifications within the abdominal aorta and its branch vessels without aneurysmal dilatation of the abdominal aorta. The urinary bladder is unremarkable. The uterus is not visualized, likely surgically absent. No abnormal left adnexal mass lesion. 4 cm round cyst is identified within the right adnexa. This is unchanged since the prior examination from June 2017. The right adnexa is otherwise unremarkable. Mild colonic diverticulosis without CT evidence of diverticulitis. No bowel obstruction or pneumatosis. Fat-containing umbilical hernia is identified. The neck measures 2 cm. Mild fat stranding is identified within the hernia sac as well as the fat entering the hernia sac. No significant adenopathy, free air, or free fluid within the abdomen or pelvis. [place] left curvature of the lumbar spine. Scattered osseous degenerative changes. No acute osseous abnormality. IMPRESSION: 1. Moderate-sized fat-containing umbilical hernia. Mild fat stranding is seen within the hernia sac as well as within the fat extending to the hernia sac which may relate to developing fat necrosis. No evidence of bowel entering the hernia sac. 2. Stable 4 cm right adnexal cyst. Given stability since 2016, this suggests a nonaggressive process. 3. Colonic diverticulosis without CT evidence of diverticulitis. 4. Fatty infiltration of the liver. 5. Additional findings, as above. Dictated by: Dictated on workstation # [id number] Dict: 06/03/18 1501 Trans: 06/03/181734 Interpreted by: IZABEL PALACIOS MD Electronically signed by: IZABEL PALACIOS MD 06/03/181734 Reviewed: Reviewed by Ne Departure Communication (Admissions) Time/Spoke to Admitting Phy: 15:44 Dr. Gambino has agreed to accept the patent for admission and surgical consult. Impression Primary Impression: Abdominal hernia Disposition: ADMITTED INPATIENT Condition: Stable/Unchanged Admissions Decision to Admit Reason: Admit from ER (General) Decision to Admit/Date: Jun 03, 2018 Time/Decision to Admit Time: 15:44 Departure-Patient Inst. Referrals: MIRZA WRIGHT MD (PCP/Family) Primary Care Physician Scripts Hydrocodone Bit/Acetaminophen (LORTAB 7.5 MG TABLET) 1 Ea Tablet 1 EACH PO Q4H, #35 TAB Prov: GUS GAMBINO MD 06/04/18 OMA GALLARDO Jun 03, 2018 14:33
--- NOTE | 2018-06-03 15:20 | Diagnostic Imaging Report ---
PROCEDURE: CT abdomen and pelvis with contrast. TECHNIQUE: Multiple contiguous axial images were obtained through the abdomen and pelvis after administration of intravenous contrast. INDICATION: Umbilical hernia, abdominal pain. COMPARISON: CT of the pelvis dated June 02, 2017. FINDINGS: The lung bases are clear. Diffusely decreased density is noted throughout the liver, consistent with fatty infiltration of the liver. No focal hepatic mass. Tiny hiatal hernia. The spleen is unremarkable. The adrenal glands are unremarkable. The pancreas is unremarkable. Cholecystectomy. Tiny 5 mm and smaller left renal hypodensities are present, too small to completely characterize. Otherwise, the kidneys are unremarkable. Extensive vascular calcifications within the abdominal aorta and its branch vessels without aneurysmal dilatation of the abdominal aorta. The urinary bladder is unremarkable. The uterus is not visualized, likely surgically absent. No abnormal left adnexal mass lesion. 4 cm round cyst is identified within the right adnexa. This is unchanged since the prior examination from June 2017. The right adnexa is otherwise unremarkable. Mild colonic diverticulosis without CT evidence of diverticulitis. No bowel obstruction or pneumatosis. Fat-containing umbilical hernia is identified. The neck measures 2 cm. Mild fat stranding is identified within the hernia sac as well as the fat entering the hernia sac. No significant adenopathy, free air, or free fluid within the abdomen or pelvis. [place] left curvature of the lumbar spine. Scattered osseous degenerative changes. No acute osseous abnormality. IMPRESSION: 1. Moderate-sized fat-containing umbilical hernia. Mild fat stranding is seen within the hernia sac as well as within the fat extending to the hernia sac which may relate to developing fat necrosis. No evidence of bowel entering the hernia sac. 2. Stable 4 cm right adnexal cyst. Given stability since 2016, this suggests a nonaggressive process. 3. Colonic diverticulosis without CT evidence of diverticulitis. 4. Fatty infiltration of the liver. 5. Additional findings, as above. Dictated by: Dictated on workstation # [id number]
[2018-06-03 16:29] VITALS: BP 158/72
--- OUTSIDE RECORDS SUMMARY | 2018-06-03 16:37 | XMS REPORT | Clinical Summary ---
Author Author [facility] Organization [facility] Address Unknown Phone Unavailable Care Team Providers Care Elementary Secretary Name Role Phone Nicholas Hanks MD PCP Gary Quezada MD Unavailable Hannah Veloz MD Unavailable Source Comments Some departments are not documenting in the electronic medical record. If you do not see the information that you expected, contact Release of Information in the Health Information Management department at [phone] for further assistance in locating additional records.[facility] Allergies Active Allergy Reactions Severity Noted [...] SCREENING 1987 COLORECTAL CANCER 12/26/1997 SCREENING SHINGLES RECOMBINANT 12/26/1997 VACCINE (1 of 2) OSTEOPOROSIS SCREENING 12/26/2012 PNEUMONIA (PCV13/PPSV23) 12/26/2012 VACCINES (1 of 2 - PCV13) INFLUENZA VACCINE 07/02/2018 Results Not on filefrom Last 3 Months
--- OUTSIDE RECORDS SUMMARY | 2018-06-03 16:38 | XMS REPORT | Continuity of Care Document ---
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 02/03/2016 ALFREDO LOCKE FACC, ALI FACP CCDS Ot M62.89 OTHER SPECIFIED DISORDERS OF MUSCLE 02/03/2016 ALFREDO LOCKE FACC, ALI FACP CCDS Ot R06.09 OTHER FORMS OF DYSPNEA 04/28/2016 MIRZA WRIGHT MD R Ot R10.11 RIGHT UPPER QUADRANT PAIN 05/01/2016 MIRZA WRIGHT MD R Ot R10.11 RIGHT UPPER QUADRANT PAIN 05/06/2016 MIRZA WRIGHT MD R Ot R10.11 RIGHT UPPER QUADRANT PAIN 05/13/2016 MIRZA WRIGHT MD R Ot R10.11 RIGHT UPPER QUADRANT [...] 786.09 RESPIRATORY ABNORM NEC 05/19/2016 DELMAR ZAZUETA VISCERA WASHER Ot V76.12 OTH SCREEN MAMMO-MALIGN NEOPLASM OF [...] R06.09 OTHER FORMS OF DYSPNEA 05/19/2016 MIRZA WRIGHT MD R Ot R10.11 RIGHT UPPER QUADRANT PAIN 05/19/2016 MIRZA WRIGHT MD R Ot R10.11 RIGHT UPPER QUADRANT [...] HERNIA, W/O OBST OR GANGR, 05/25/2016 GUS MONTALVO MD Ot K82.8 OTHER SPECIFIED DISEASES OF GALLBLADDER 05/25/2016 GUS MONTALVO MD, Ot Z01.818 ENCOUNTER FOR OTHER PREPROCEDURAL EXAMIN 05/26/2016 GUS MONTALVO MD Ot I10 ESSENTIAL (PRIMARY) HYPERTENSION 05/26/2016 GUS MONTALVO MD Ot I48.91 UNSPECIFIED ATRIAL FIBRILLATION 05/26/2016 GUS MONTALVO MD Ot K81.1 CHRONIC CHOLECYSTITIS 05/26/2016 GUS MONTALVO MD Ot Z79.899 OTHER FDC (CURRENT) DRUG THERAPY 05/27/2016 GUS MONTALVO MD [...] 06/02/2016 GUS MONTALVO MD, Ot Z79.899 OTHER FDC (CURRENT) DRUG THERAPY 04/24/2017 Ot 272.0 PURE [...] RESPIRATORY ABNORM NEC 04/24/2017 DELMAR ZAZUETA W VISCERA WASHER Ot V76.12 OTH SCREEN MAMMO-MALIGN NEOPLASM OF [...] R06.09 OTHER FORMS OF DYSPNEA 04/24/2017 MIRZA WRIGHT MD R Ot R10.11 RIGHT UPPER QUADRANT PAIN 04/24/2017 MIRZA WRIGHT MD R Ot R10.11 RIGHT UPPER QUADRANT PAIN 04/28/2017 MIRZA WRIGHT MD R Ot N83.8 OTH NONINFLAMMATORY DISORD OF OVARY, FAL 04/28/2017 ADRIANA LOCKE MIRZA R Ot Z90.710 ACQUIRED ABSENCE OF BOTH CERVIX AND UTER 05/03/2017 MIRZA WRIGHT MD R Ot N83.8 OTH NONINFLAMMATORY DISORD OF OVARY, FAL 05/03/2017 MIRZA WRIGHT MD R Ot Z90.710 ACQUIRED ABSENCE OF BOTH CERVIX AND UTER 05/26/2017 MIRZA WRIGHT MD R Ot N83.8 OTH NONINFLAMMATORY DISORD OF OVARY, FAL 05/26/2017 MIRZA WRIGHT MD R Ot Z90.710 ACQUIRED ABSENCE OF [...] 786.09 RESPIRATORY ABNORM NEC 06/01/2017 DELMAR ZAZUETA VISCERA WASHER Ot V76.12 OTH SCREEN MAMMO-MALIGN NEOPLASM OF [...] R06.09 OTHER FORMS OF DYSPNEA 06/01/2017 MIRZA WRIGHT MD R Ot R10.11 RIGHT UPPER QUADRANT PAIN 06/01/2017 MIRZA WRIGHT MD R Ot R10.11 RIGHT UPPER QUADRANT PAIN 06/01/2017 MIRZA WRIGHT MD Ot N83.8 OTH NONINFLAMMATORY DISORD OF OVARY, FAL 06/01/2017 MIRZA WRIGHT MD R Ot Z90.710 ACQUIRED ABSENCE OF BOTH CERVIX AND UTER 06/26/2017 MIRZA WRIGHT MD Ot K57.30 DVRTCLOS OF LG INT W/O PERFORATION OR AB 06/26/2017 MIRZA WRIGHT MD R Ot N83.202 UNSPECIFIED OVARIAN CYST, [...] 786.09 RESPIRATORY ABNORM NEC 07/27/2017 DELMAR ZAZUETA VISCERA WASHER Ot V76.12 OTH SCREEN MAMMO-MALIGN NEOPLASM OF [place] 07/27/2017 ALFREDO LOCKE FACC, ALEXANDRA FACP CCDS Ot I10 ESSENTIAL (PRIMARY) HYPERTENSION 07/27/2017 ALFREDO LOCKE FACC, ALEXANDRA MOELLERP CCDS Ot I48.91 UNSPECIFIED ATRIAL FIBRILLATION 07/27/2017 ALFREDO LOCKE FAC, ALI SUNNIP CCDS Ot 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 07/27/2017 ALFREDO LOCKE FACElise, ALI FACP CCDS Ot M62.89 OTHER SPECIFIED DISORDERS OF MUSCLE 07/27/2017 ALFREDO LOCKE FACElise, ALEXANDRA MOELLERP CCDS Ot R06.09 OTHER FORMS OF DYSPNEA 07/27/2017 MIRZA WRIGHT MD R Ot R10.11 RIGHT UPPER QUADRANT PAIN 07/27/2017 MIRZA WRIGHT MD Ot R10.11 RIGHT UPPER QUADRANT PAIN 07/27/2017 MIRZA WRIGHT MD Ot N83.8 OTH NONINFLAMMATORY DISORD OF OVARY, FAL 07/27/2017 MIRZA WRIGHT MD Ot Z90.710 ACQUIRED ABSENCE OF BOTH CERVIX AND UTER 07/27/2017 MIRZA WRIGHT MD Ot K57.30 DVRTCLOS OF LG INT W/O PERFORATION OR AB 07/27/2017 MIRZA WRIGHT MD R Ot N83.202 UNSPECIFIED OVARIAN CYST, LEFT SIDE 08/09/2017 ROBB GASTELUM SALVATORE S Ot N83.291 OTHER OVARIAN CYST, RIGHT SIDE 08/28/2017 FENSALVATORE MCCARTY DO S Ot N83.291 OTHER OVARIAN CYST, RIGHT SIDE 01/31/2018 MIRZA WRIGHT MD, Ot K21.0 GASTRO-ESOPHAGEAL REFLUX DISEASE WITH ES 01/31/2018 MIRZA WRIGHT MD Ot R05 COUGH 02/02/2018 GUS MONTALVO MD, Ot I10 ESSENTIAL (PRIMARY) HYPERTENSION 02/02/2018 GUS MONTALVO MD, Ot I48.91 UNSPECIFIED ATRIAL FIBRILLATION 02/02/2018 UGS MONTALVO MD, Ot K21.0 GASTRO-ESOPHAGEAL REFLUX DISEASE WITH ES 02/02/2018 GUS MONTALVO MD, Ot K22.2 ESOPHAGEAL OBSTRUCTION 02/02/2018 GUS MONTALVO MD, Ot K44.9 DIAPHRAGMATIC HERNIA WITHOUT OBSTRUCTION 02/02/2018 GUS MONTALVO MD, Ot Z79.01 OVERNIGHT CAREGIVER (CURRENT) USE OF ANTICOAGULANT 02/02/2018 GUS MONTALVO MD, Ot Z79.899 OTHER FDC (CURRENT) DRUG THERAPY 02/02/2018 GUS MONTALVO MD, Ot K21.9 GASTRO-ESOPHAGEAL REFLUX DISEASE WITHOUT 02/02/2018 GUS MONTALVO MD Ot R05 COUGH 02/02/2018 GUS MONTALVO MD, Ot Z01.818 ENCOUNTER FOR OTHER PREPROCEDURAL EXAMIN 02/06/2018 GUS MONTALVO MD Ot I10 ESSENTIAL (PRIMARY) HYPERTENSION 02/06/2018 GUS MONTALVO MD Ot I48.91 UNSPECIFIED ATRIAL FIBRILLATION 02/06/2018 GUS MONTALVO MD, Ot K21.0 GASTRO-ESOPHAGEAL REFLUX DISEASE WITH ES 02/06/2018 GUS MONTALVO MD, Ot K22.2 ESOPHAGEAL OBSTRUCTION 02/06/2018 GUS MONTALVO MD, Ot K44.9 DIAPHRAGMATIC HERNIA WITHOUT OBSTRUCTION 02/06/2018 GUS MONTALVO MD, Ot Z79.01 OVERNIGHT CAREGIVER (CURRENT) USE OF ANTICOAGULANT 02/06/2018 GUS MONTALVO MD, Ot Z79.899 OTHER OVERNIGHT CAREGIVER (CURRENT) DRUG THERAPY 02/07/2018 GUS MONTALVO MD, Ot K21.9 GASTRO-ESOPHAGEAL REFLUX DISEASE WITHOUT 02/07/2018 GUS MONTALVO MD Ot R05 COUGH 02/07/2018 GUS MONTALVO MD, Ot Z01.818 ENCOUNTER FOR OTHER PREPROCEDURAL EXAMIN 02/20/2018 MIRZA WRIGHT MD, Ot K21.0 GASTRO-ESOPHAGEAL REFLUX DISEASE WITH ES 02/20/2018 MIRZA WRIGHT MD Ot R05 COUGH 03/28/2018 ALEXEY KWAN APRN Ot J98.4 OTHER DISORDERS OF LUNG 03/28/2018 ALEXEY KWAN APRN Ot R91.8 OTHER NONSPECIFIC ABNORMAL FINDING OF TRINA Procedures There is no data. Results Test [...] plasma calcium measurement (mass/volume) 9.8 mg/dL 8.5-10.1 [id number] - 03/07/18 15:33 Serum or plasma urea nitrogen measurement (mass/volume) 19 mg/dL 7-18 Serum or plasma creatinine measurement (mass/volume) 0.81 mg/dL 0.60-1.30 Serum or plasma urea nitrogen/creatinine mass ratio 23 NRG Serum or plasma creatinine measurement with calculation of estimated glomerular filtration rate > NRG Sputum Gram stain - 05/24/18 09:10 Sputum Gram stain No bacteria seen NRG Bacteria identification in bronchial specimen by aerobe culture - 05/24/18 09: 10 Bacteria identification in bronchial specimen by aerobe culture NG NRG C FUNGUS SPUTUM FLUID TISSUE - 05/24/18 09:10 Sputum Gram stain - 05/24/18 09:11 Sputum Gram stain No bacteria seen NRG Bacteria identification in bronchial specimen by aerobe culture - 05/24/18 09: 11 Bacteria identification in bronchial specimen by aerobe culture NG NRG C FUNGUS SPUTUM FLUID TISSUE - 05/24/18 09:11 Sputum Gram stain - 05/24/18 09:12 Sputum Gram stain Rare Gram positive cocci NRG Bacteria identification in bronchial specimen by aerobe culture - 05/24/18 09: 12 Bacteria identification in bronchial specimen by aerobe culture NG NRG C FUNGUS SPUTUM FLUID TISSUE - 05/24/18 09:12 Mycobacterium species detection by organism specific culture - 05/24/18 09:13 QUANTITY OF GROWTH . NRG Mycobacterium species detection by organism specific culture RML NRG Encounters ACCT No. Visit Date/Time Discharge Status Pt. Type Provider Facility Loc./Unit Complaint [id number] 01/19/2015 08:22:00 01/19/2015 23:59:59 CLS Outpatient FORD GAMING APRN [id number] 11/03/2014 13:13:00 11/03/2014 23:59:59 CLS Outpatient FARZANA LUNA APRN [id number] 07/29/2013 15:12:00 07/29/2013 23:59:59 CLS Outpatient FARZANA LUNA APRN [id number] 03/06/2015 04:03:48 ACT Document Registration [id number] 10/05/2016 12:28:00 10/05/2016 23:59:00 DIS Outpatient Aquiles Wright [id number] 05/24/2018 08:15:00 05/24/2018 23:59:59 CLS Preadmit LUPE GASTELUM LINDA Resendiz [facility] ENDO DYSPNEA ON EXERTION/ COUGH/SLEEP DISORDER [id number] 05/15/2018 10:15:00 05/15/2018 23:59:59 CLS Preadmit ALEXEY KWAN APRN [facility] RAD WHEAT [id number] 03/26/2018 21:00:00 03/26/2018 23:59:59 CLS Preadmit ALEXEY KWAN REMOTE CONTROL ASSEMBLER [facility] SLEEP ATRIAL FIBRILLATION [id number] 03/07/2018 16:45:00 03/07/2018 23:59:59 CLS Preadmit ALEXEY KWAN REMOTE CONTROL ASSEMBLER [facility] RT WHEAT,FATIGUE, RESTRICTIVE [id number] 03/07/2018 15:18:00 03/07/2018 23:59:59 CLS Outpatient ALEXEY KWAN APRN [facility] RAD RESTRICTIVE LUNG DISEASE [id number] 02/02/2018 11:07:00 02/02/2018 14:02:00 DIS Outpatient GUS MONTALVO MD [facility] ENDO REFLUX/COUGH [id number] 02/01/2018 09:22:00 02/01/2018 09:50:00 DIS Outpatient GUS MONTALVO MD [facility] PREOP EGD [id number] 01/30/2018 10:33:00 01/30/2018 23:59:59 CLS Outpatient MIRZA WRIGHT MD [facility] RAD REFLUX ESOPHAGITIS [id number] 08/03/2017 09:59:00 08/03/2017 23:59:59 CLS Outpatient SALVATORE ZAMUDIO DO [facility] RAD SIMPLE OVARIAN CYST N83.291 [id number] 06/02/2017 09:17:00 06/02/2017 23:59:59 CLS Outpatient MIRZA WRIGHT MD [facility] RAD PELVIC PAIN IN FEMALE [id number] 04/27/2017 14:31:00 04/27/2017 23:59:59 CLS Outpatient MIRZA WRIGHT MD [facility] RAD PAIN OL QUANDRANT [id number] 07/22/2016 18:36:00 07/22/2016 23:59:59 CLS Outpatient DAVID BLACK DO [facility] QUICK WHEEZY COUGH, BODY ACHES [id number] 05/26/2016 08:57:00 05/26/2016 15:00:00 DIS Outpatient GUS MONTALVO MD [facility] BILIARY DYSKNESIA [id number] 05/25/2016 09:00:00 05/25/2016 12:15:00 DIS Outpatient GUS MONTALVO MD [facility] PREOP DYSKNESIA [id number] 05/20/2016 12:10:00 05/20/2016 14:40:00 DIS Outpatient GUS MONTALVO MD [facility] SDC REFLUX [id number] 05/19/2016 06:11:00 05/19/2016 12:50:00 DIS Outpatient GUS MONTALVO MD [facility] PREOP REFLUX [id number] 05/05/2016 11:46:00 05/05/2016 23:59:59 CLS Outpatient MIRZA WRIGHT MD [facility] CARD RUQ PAIN [id number] 04/25/2016 15:53:00 04/25/2016 23:59:59 CLS Outpatient MIRZA WRIGHT MD [facility] RAD RUQ PAIN [id number] 01/19/2016 08:11:00 01/19/2016 23:59:59 CLS Outpatient ALEXANDRA FUENTES MD, FACC, FACP CCDS [facility] CARD AFIB,HTN, EXCERSICE INDUCED LEG FATIGUE [id number] 03/05/2015 10:20:00 03/05/2015 23:59:59 CLS Outpatient DELMAR ZAZUETA [facility] RAD SCREENING [id number] 03/20/2014 07:33:00 03/20/2014 23:59:59 CLS Outpatient ALEXANDRA FUENTES MD, FACC, FACP CCDS [facility] CARD DYPSENIA [id number] 03/18/2014 09:13:00 03/18/2014 23:59:59 CLS Outpatient ALFREDO LOCKE FACC, ALEXANDRA FUNG CCDS [facility] CARD HYPERTENSION DYSPENIA [id number] 03/05/2015 10:20:00 Document Registration [id number] 07/06/2012 10:30:00 Document Registration [id number] 05/09/2012 06:42:00 Document Registration [id number] 05/08/2012 08:11:00 Document Registration [id number] 04/24/2012 14:55:00 Document Registration [id number] 04/24/2012 10:30:00 Document Registration [id number] 11/10/2011 07:11:00 Document Registration [id number] 04/19/2011 11:07:00 Document Registration [id number] 11/25/2010 08:42:00 Document Registration [id number] 11/10/2010 07:30:00 Document Registration [id number] 10/26/2010 08:07:00 Document Registration [id number] 10/26/2010 08:03:00 Document Registration [id number] 10/18/2010 13:03:00 Document Registration [id number] 10/18/2010 12:58:00 Document Registration [id number] 10/06/2010 10:10:00 Document Registration
[2018-06-03] MEDS ORDERED: NS IV 1000 ML 1,000 ML ONE (16:39)
[2018-06-03] MEDS ORDERED: ONDANSETRON 4 MG/2 ML (SDV) Z0FRAN IVP PRN (17:00)
[2018-06-03] MEDS ORDERED: PIPERACILLIN/TAZO 4.5 GM/NS 100 ML IV NR ×2 (17:00)
--- NOTE | 2018-06-03 17:14 | Progress Note-Pre Operative ---
Pre-Operative Progress Note H&P Reviewed The H&P was reviewed, patient examined and no changes noted. Date Seen by Provider: Jun 03, 2018 Time Seen by Provider: 17:00 Date H&P Reviewed: Jun 03, 2018 Time H&P Reviewed: 17:00 Pre-Operative Diagnosis: incarerated umbilical hernia GUS MONTALVO MD Jun 03, 2018 17:14
[2018-06-03] MEDS: NS IV 1000 ML 1,000 ML IV SCH (17:50)
[2018-06-03] MEDS ORDERED: ALPR0.25 PO (18:12)
[2018-06-03] MEDS ORDERED: HYDR-3812 PO (18:13)
--- NOTE | 2018-06-03 18:47 | HISTORY AND PHYSICAL ---
DATE OF SERVICE: ATTENDING PRIMARY CARE PHYSICIAN: Dr. Berry. HISTORY OF PRESENT ILLNESS: The patient is a 72-year-old female known to us. We had seen her last in 01/2018. We had seen her for reflux and regurgitation as well as dysphagia. She underwent an EGD in 05/2016 and found to have a reflux esophagitis grade II and a hiatal hernia approximately 2 to 3 cm in size. She continued to have some discomfort and an ultrasound of the gallbladder was performed, which did show small polyps of the gallbladder. She then underwent a HIDA scan with an ejection fraction of 66% as well as abnormal filling of the gallbladder related to chronic cholecystitis. She then underwent laparoscopic cholecystectomy on 02/24/2016. She presented today with abdominal pain in the umbilical region. We had identified a small reducible incisional hernia, which was asymptomatic at that time. Today, she reports that the pain had increased and the size of the lesion has increased in the past several months. Upon examination, she does have an incarcerated umbilical hernia which is tender to palpation. She is otherwise eating well and having normal bowel movements and showing no signs of obstruction. CT scan also showed what appears to be incarcerated omentum within the hernia sac. PAST MEDICAL HISTORY: Atrial fibrillation, arthritis, hypertension, gastroesophageal reflux disease, hiatal hernia. PAST SURGERIES: Total hysterectomy in 1975, bilateral ankle surgery, left knee bursectomy, reconstructive nasal surgery for basal cell cancer, laparoscopic cholecystectomy in 05/2016. ALLERGIES: No known drug allergies; however, multiple food sensitivities. MEDICATIONS: Hydrochlorothiazide daily, losartan 100 mg daily, omeprazole 20 mg daily, Eliquis daily. SOCIAL HISTORY: Negative smoke, social alcohol. FAMILY HISTORY: Sister, diabetes. Mother, hypertension and abdominal aortic aneurysm. Father, myocardial infarction age at 62 and DVT. REVIEW OF SYSTEMS: This is a well-nourished female, currently in no acute distress. She is not experiencing any shortness of breath or difficulty breathing. No chest pain, palpitations, or diaphoresis. No nausea or vomiting, no diarrhea or constipation. No fever or chills, no recent inadvertent weight loss. All other review of systems is negative. PHYSICAL EXAMINATION: VITAL SIGNS: Temperature 97.7, blood pressure 158/72, pulse 66, respirations 16, pulse ox 98% on room air. CHEST: Clear. Good breath sounds bilaterally. HEART: Regular, no murmurs. EXTREMITIES: No lower extremity edema. Negative Homans sign. HEENT: No scleral icterus. No cervical lymphadenopathy. ABDOMEN: Soft, nondistended with an incarcerated incisional umbilical hernia, which is slightly tender to palpation; however, no overlying redness or erythema. SKIN: Warm, dry. LABORATORY DATA: WBC 7.8, hemoglobin 13.1, hematocrit 38, platelets 261. BUN 18, creatinine 0.74. Liver function enzymes are normal. ASSESSMENT AND PLAN: A 72-year-old female with symptomatic incarcerated incisional hernia with omentum within the hernia sac. We will proceed with an open umbilical hernia repair with mesh on this admission. Job ID: [id number] DocumentID: [id number] Dictated Date: 06/03/2018 17:13:34 Food Service Specialist Date: 06/03/2018 18:46:43 Dictated By: GUS MONTALVO MD MTDD
[2018-06-03 19:55] VITALS: BP 163/69
[2018-06-03] MEDS: PIPERACILLIN/TAZO 4.5 GM/NS 100 ML IV SCH ×2 (22:54)
[2018-06-04 00:40] VITALS: BP 140/63
[2018-06-04] MEDS: NS IV 1000 ML 1,000 ML IV SCH ×3 (02:57→15:43)
[2018-06-04 04:09] VITALS: BP 144/71
[2018-06-04 04:21] LABS: BASOPHILS # (AUTO) 0.1 10^3/uL (0.0-0.1); BASOPHILS % (AUTO) 1 % (0-10); EOSINOPHILS # (AUTO) 0.5 10^3/uL (0.0-0.3); EOSINOPHILS % (AUTO) 7 % (0-10); HEMATOCRIT 34 % (35-52); HEMOGLOBIN 11.9 G/DL (11.5-16.0); LYMPHOCYTES # (AUTO) 1.5 X 10^3 (1.0-4.0); LYMPHOCYTES % (AUTO) 22 % (12-44); MEAN CORPUSCULAR HEMOGLOBIN 31 PG (25-34); MEAN CORPUSCULAR HGB CONC 35 G/DL (32-36); MEAN CORPUSCULAR VOLUME 89 FL (80-99); MEAN PLATELET VOLUME 9.6 FL (7.4-10.4); MONOCYTES # (AUTO) 0.9 X 10^3 (0.0-1.0); MONOCYTES % (AUTO) 13 % (0-12); NEUTROPHILS % (AUTO) 58 % (42-75); PLATELET COUNT 228 10^3/uL (130-400); RED BLOOD COUNT 3.83 10^6/uL (4.35-5.85); RED CELL DISTRIBUTION WIDTH 13.2 % (10.0-14.5)
[2018-06-04 04:34] LABS: ALANINE AMINOTRANSFERASE 21 U/L (0-55); ALBUMIN 3.5 GM/DL (3.2-4.5); ALKALINE PHOSPHATASE 63 U/L (40-136); BILIRUBIN,TOTAL 0.5 MG/DL (0.1-1.0); BUN/CREATININE RATIO 20; CALCIUM 9.5 MG/DL (8.5-10.1); CARBON DIOXIDE 20 MMOL/L (21-32); CHLORIDE 111 MMOL/L (98-107); CREATININE SERUM 0.79 MG/DL (0.60-1.30); GFR ESTIMATED > 60; GLUCOSE 91 MG/DL (70-105); POTASSIUM 3.9 MMOL/L (3.6-5.0); SODIUM 141 MMOL/L (135-145); TOTAL PROTEIN 6.1 GM/DL (6.4-8.2)
[2018-06-04] MEDS: PIPERACILLIN/TAZO 4.5 GM/NS 100 ML IV SCH ×6 (06:02→22:37)
[2018-06-04 08:00] VITALS: BP 146/69
[2018-06-04] MEDS ORDERED: BUP/EPI 0.5% 1:200,000 (SENSORCAINE) 30 ML VIAL ONE (09:17)
[2018-06-04] MEDS ORDERED: proPOfol 200 MG/20 ML (DIPRIVAN) VIAL IV ONE (09:21)
[2018-06-04] MEDS ORDERED: fentaNYL INJECTION 100 MCG/2 ML AMP ONE (09:21)
[2018-06-04] MEDS ORDERED: LIDOCAINE PF 2% 5 ML (XYLOCAINE) VIAL ONE (09:21)
[2018-06-04] MEDS ORDERED: SEVOFLURANE (ULTANE) 15 ML INHAL SOLN ONE ×3 (09:21→11:19)
[2018-06-04] MEDS ORDERED: MIDAZOLAM 2 MG/2 ML (VERSED) VIAL ONE (09:22)
[2018-06-04] MEDS ORDERED: SCOPOLAMINE 1.5 MG (TRANSDERM-SCOP) PATCH ONE (09:25)
[2018-06-04] MEDS ORDERED: FAMOTIDINE 20MG/2ML IV (PEPCID) ONE (09:28)
[2018-06-04] MEDS: LACTATED RINGERS 1,000 ML IV PRN ×2 (10:20→11:29)
[2018-06-04] MEDS ORDERED: ceFAZolin 1,000 MG/10 ML (ANCEF) VIAL ONE (10:27)
[2018-06-04] MEDS ORDERED: DEXAMETHASONE 10 MG/ML (DECADRON) 1 ML VIAL ONE (10:38)
[2018-06-04] MEDS ORDERED: ONDANSETRON 4 MG/2 ML (SDV) Z0FRAN ONE (10:38)
[2018-06-04] MEDS ORDERED: ROCURONIUM 10 MG/ML 5 ML SYRINGE IV ONE (10:40)
[2018-06-04] MEDS ORDERED: morphine INJ 10 MG/ML 1ML (SYR OR VIAL) ONE (11:06)
--- NOTE | 2018-06-04 11:12 | Progress Note-Post Operative ---
Post-Operative Progess Note Surgeon (s)/Photo Lab Technician (s) Surgeon GUS MONTALVO MD Photo Lab Technician: lucy laguerre CNC TECHNICIAN Pre-Operative Diagnosis incarerated ventral abdominal incisional hernia Post-Operative Diagnosis same. Procedure & Operative Findings Date of Procedure 06/04/18 Procedure Performed/Findings open ventral abdominal incisional hernia repair with mesh. Anesthesia Type GET Estimated Blood Loss Estimated blood loss (mL): minimal Specimens/Packing Specimens Removed hernia sac GUS MONTALVO MD Jun 04, 2018 11:12 am
[2018-06-04] MEDS ORDERED: HYDR-34 PO (11:15)
--- NOTE | 2018-06-04 11:18 | Discharge Inst-Surgical ---
D/C Lap Instructions-SELVIN New, Converted, or Re-Newed RX: RX on Chart Follow Up Appt in 2 weeks Activity as tolerated No driving for 24 hours No [address] while on pain medications Incentive Spirometry use every 2 hours while awake Regular Diet Symptoms to Report: Fever over 101 degree F, Nausea/Vomiting Infection Signs and Symptoms to report: Increased redness, Foul odor of wound, Increased drainage Bathing instructions: May shower Operative Area Clean/Dry; Keep incision clean/dry If any problems/questions: Contact your physician or go to Emergency Room GUS MONTALVO MD Jun 04, 2018 11:17 am
[2018-06-04] MEDS ORDERED: GLYCOPYRROLATE 0.2 MG/ML (ROBINUL) 2 ML VIAL ONE (11:19)
[2018-06-04] MEDS ORDERED: KETOROLAC 30 MG/ML VIAL ONE (11:19)
[2018-06-04] MEDS ORDERED: NEOSTIGMINE 1 MG/ML 5 ML SYRINGE ONE (11:19)
[2018-06-04] MEDS ORDERED: ONDANSETRON 4 MG/2 ML (SDV) Z0FRAN IVP PRN (11:45)
[2018-06-04] MEDS ORDERED: PROMETHAZINE INJ 25 MG/ML (PHENERGAN) AMP IVP ONE (11:45)
[2018-06-04] MEDS ORDERED: morphine INJ 10 MG/ML 1ML (SYR OR VIAL) IVP NR (11:52)
--- NOTE | 2018-06-04 11:58 | OPERATIVE REPORT ---
DATE OF SERVICE: 06/04/2018 ATTENDING PRIMARY CARE PHYSICIAN: Dr. Berry. PREOPERATIVE DIAGNOSIS: Incarcerated ventral abdominal incisional hernia. POSTOPERATIVE DIAGNOSIS: Incarcerated ventral abdominal incisional hernia with omentum within the hernia sac. No ischemic changes. PROCEDURE: Open ventral abdominal incisional hernia repair with mesh. SURGEON: Gus Montalvo MD. ANESTHESIA: General endotracheal. ESTIMATED BLOOD LOSS: Minimal. FINDINGS: Incarcerated ventral abdominal incisional hernia from a previous port site incision. There was only omentum within the hernia sac which was viable and no ischemic changes. DISPOSITION: The patient tolerated the procedure well. INDICATIONS: The patient is a 72-year-old female known to us. She had had issues with abdominal discomfort and an ultrasound was performed, which did show gallbladder polyps. She also underwent a HIDA scan, which showed an ejection fraction of 66%. However, there was abnormal filling of the gallbladder related to chronic cholecystitis. She then underwent a laparoscopic cholecystectomy on 02/24/2016. She recently had a left ankle surgery and reports that it has been difficult for her to get around and ambulate. She reports that she was doing an activity that requires straining and all of a sudden she felt a sudden onset of discomfort in the supraumbilical region. She was seen in the Emergency Department where a CT scan was performed, which did show an incarcerated ventral abdominal incisional hernia with only omentum within the hernia sac. She was otherwise stable. DESCRIPTION OF PROCEDURE: The patient was brought to the operating room, laid supine on the table. After adequate IV pain and sedative medications and general endotracheal intubation, the abdomen was prepped and draped in standard surgical fashion. 0.5% Marcaine with epinephrine was then used to anesthetize the overlying skin through the supraumbilical region and a crescent shaped skin incision made using a 15 blade. The subcutaneous tissue was then dissected using electrocautery. The hernia sac was identified and completely dissected out using blunt dissection as well as electrocautery. A rim of intact, good fascia was dissected around the fascial opening using electrocautery with visualization of good hemostasis. The hernia sac was then opened using cautery. There was only omentum within the hernia sac with no ischemic changes. The hernia sac was then excised using electrocautery. A Ventralex coated polypropylene mesh was then placed into the defect which was 6.4 cm in diameter. This was then sutured in a concentric manner transfascially using 0 Prolene sutures. Good hemostasis was observed. The subcutaneous tissue was then reapproximated using 3-0 Vicryl interrupted sutures. Skin was closed using 4-0 Monocryl running subcuticular suture. Wound was then cleaned and covered with Dermabond followed by tonsil sponges and Op-Site. The patient tolerated the procedure well. We will start IV and oral pain medication as well as a clear liquid diet and advance as tolerated. Due to her problems with ambulation and the recent ankle surgery, we will most likely monitor her overnight to make sure she is able to ambulate. Job ID: [id number] DocumentID: [id number] Dictated Date: 06/04/2018 11:23:42 Injection Molding Process Technician Date: 06/04/2018 11:57:57 Dictated By: GUS MONTALVO MD MTDD
[2018-06-04 12:00] VITALS: BP 184/70
[2018-06-04] MEDS: fentaNYL INJECTION 100 MCG/2 ML AMP IVP PRN (13:59)
[2018-06-04 16:15] VITALS: BP 132/70
[2018-06-04 19:00] VITALS: BP 129/60
[2018-06-05 00:05] VITALS: BP 136/65
[2018-06-05] MEDS: NS IV 1000 ML 1,000 ML IV SCH ×2 (01:13→03:35)
[2018-06-05] MEDS: fentaNYL INJECTION 100 MCG/2 ML AMP IVP PRN (02:52)
[2018-06-05] MEDS: HYDROcodone/APAP 7.5 MG/325 MG (LORTAB, LORCET PLUS) TABLET PO PRN ×3 (03:39→11:36)
[2018-06-05 04:17] VITALS: BP_SYST 136; BP_SYST 141; BP_DIAS 62
[2018-06-05] MEDS: PIPERACILLIN/TAZO 4.5 GM/NS 100 ML IV SCH ×2 (06:10)
[2018-06-05 07:56] VITALS: BP 113/57
--- NOTE | 2018-06-05 07:57 | Anesthesia-General Post-Op ---
General Patient Condition Mental Status/LOC: Same as Preop Cardiovascular: Satisfactory Nausea/Vomiting: Absent Respiratory: Satisfactory Pain: Controlled Complications: Absent Post Op Complications Complications None Follow Up Care/Instructions Patient Instructions None needed. Anesthesia/Patient Condition Patient Condition Patient is doing well, no complaints, stable vital signs, no apparent adverse anesthesia problems. No complications reported per nursing. FLORECITA WILLS CRNA Jun 05, 2018 07:57
== END 2018-06-05 13:21 | disposition home or self-care (01) | DRG 355 ==
LOC: EDUNIT# 12:27 → ER 12:28 → 4TH 15:45
PROVIDERS: ADMIT Surgery; ATTEND Surgery
PROC: 0WUF0JZ Supplement Abdominal Wall with Synthetic Substitute, Open Approach (ICD-10-PCS; principal; 2018-06-04 10:30)
DX: K43.0 Incisional hernia with obstruction, without gangrene (principal); I48.91 Unspecified atrial fibrillation; J45.909 Unspecified asthma, uncomplicated; G47.30 Sleep apnea, unspecified; I10 Essential (primary) hypertension; K21.9 Gastro-esophageal reflux disease without esophagitis; K44.9 Diaphragmatic hernia without obstruction or gangrene; Z79.01 Long term (current) use of anticoagulants
CPT/HCPCS: 36415; 74177; 80053; 81000; 82150; 83690; 85025; 87081; 88302

== ENCOUNTER → 2018-11-29 | Outpatient (CLI) | payer MEDICARE, OTHER ==
[~2018-11-29] MED LIST changes: +ALPR0.25 PO; +HYDR-34 PO; +HYDR-3812 PO; +LOSA100T57 PO; -LOSA100T8 PO
--- NOTE | 2018-11-29 16:05 | Diagnostic Imaging Report ---
PROCEDURE: CT chest without contrast. TECHNIQUE: Multiple contiguous axial images were obtained through the chest without the use of intravenous contrast. INDICATION: Followup exam, asthma. FINDINGS: The previous CT chest exam performed on 05/15/2018 noted a faint infiltrate in the medial aspect of the right lung base. That finding is again evident on this study and no different in size or appearance. The lungs are otherwise generally clear. There is no evidence for pneumonia or for a pleural effusion, and there is no sign of failure. There is no parenchymal lung mass identified. The heart size is within normal limits and stable when compared to the prior exam. There are no coronary artery calcifications identified. The aorta is not abnormally dilated, and there is no sign of a dissection. There is no mediastinal or hilar adenopathy. The thyroid gland is unremarkable. There is no obvious breast mass. The sections through the upper abdomen show that the liver is of lower density than usually seen. This does suggest fatty metamorphosis. As noted on the prior exam, the gallbladder is surgically absent. The bone windows show no sign of a fracture or of a destructive lesion. IMPRESSION: 1. The faint infiltrate in the medial aspect of the right lung base seen on the prior exam is again evident and seems stable. 2. There is no acute cardiopulmonary abnormality identified. 3. The appearance of the liver does suggest fatty metamorphosis. Dictated by: Dictated on workstation # [id number]
== END ==
LOC: RAD 15:16
PROVIDERS: ATTEND Nurse Practitioner Family
DX: J45.909 Unspecified asthma, uncomplicated (principal)
CPT/HCPCS: 71250

== ENCOUNTER 2019-01-15 21:02 | Outpatient (CLI) | payer MEDICARE, OTHER | END 2019-01-16 06:38 | disposition home or self-care (01) | LOC: SLEEP 21:02 | PROVIDERS: ATTEND Nurse Practitioner Family | DX: G47.33 Obstructive sleep apnea (adult) (pediatric) (principal); R06.09 Other forms of dyspnea; J45.909 Unspecified asthma, uncomplicated; R91.8 Other nonspecific abnormal finding of lung field; R05 Cough | CPT/HCPCS: 95811 ==

== ENCOUNTER → 2019-05-30 | Outpatient (CLI) | payer MEDICARE, OTHER ==
[~2019-05-30] MED LIST changes: -OMEP20CA12 PO; +OMEP20CA13 PO
--- NOTE | 2019-05-30 11:09 | Diagnostic Imaging Report ---
INDICATION: WHEAT, ABNORMAL CT SCAN, COUGH, ASTHMA. COMPARISON: 05/24/2018 FINDINGS: Frontal and lateral views of the chest demonstrate normal heart size and pulmonary vascularity. The lungs are clear. There are no signs of infiltrate, pleural effusions or pneumothoraces. The visualized osseous structures show no acute abnormalities. IMPRESSION: 1. No acute process. No signs of infiltrates, effusions or pneumothoraces. Dictated by: Dictated on workstation # [id number]
== END ==
LOC: RAD 10:22
PROVIDERS: ATTEND Nurse Practitioner Family
DX: J45.909 Unspecified asthma, uncomplicated (principal)
CPT/HCPCS: 71046

== ENCOUNTER → 2019-06-11 | Outpatient (CLI) | payer MEDICARE, OTHER ==
[~2019-06-11] VITALS: Ht 154.9 cm; Wt 87.1 kg
[~2019-06-11] MED LIST changes: +CATHETER FLUSH 10 ML SYR IV PRN; +REGADENOSON 0.4 MG/5 ML SYR (LEXISCAN) IV ONE
[2019-06-11 13:16] VITALS: BP 139/70
[2019-06-11 13:20] VITALS: BP 125/65
--- NOTE | 2019-06-11 20:08 | STRESS TEST ---
DATE OF SERVICE: 06/11/2019 RESTING AND POST REGADENOSON TECHNETIUM-99M TETROFOSMIN SPECT CT IMAGING ORDERING PHYSICIAN: Gretchen Hudson MD, RYAN, FACP, FACC. PRIMARY PHYSICIAN: Mike Berry MD. CLINICAL DIAGNOSIS: Chest discomfort, shortness of breath. Baseline images were carried out after injection of 10.3 mCi of technetium-99m Tetrofosmin. This was followed by 0.4 mg regadenoson and 29.1 mCi of technetium-99m Tetrofosmin for stress imaging. The electrocardiogram showed sinus rhythm at baseline. It did not change significantly with the regadenoson infusion. The patient reported some lightheadedness following regadenoson infusion, which resolved in a few minutes. Review of images at rest and following stress does not indicate any significant perfusion defects consistent with significant myocardial ischemia or infarction. Gated images show normal global left ventricular systolic function with normal regional wall motion. Left ventricular ejection fraction is calculated to be 68%. Left ventricular end diastolic volume is 31 mL. TID is absent (1.05). CONCLUSIONS: 1. No evidence of any significant myocardial ischemia or infarction on this study. 2. Normal regional wall motion. 3. Normal global left ventricular systolic function with a calculated ejection fraction of 68%. Job ID: [id number] DocumentID: [id number] Dictated Date: 06/11/2019 15:41:01 Public Utilities Sales Representative Date: 06/11/2019 20:08:15 Dictated By: GRETCHEN HUDSON MD, RYAN, FACP, FACC,
== END ==
LOC: CARD 10:44
PROVIDERS: ATTEND Internal Medicine Cardiovascular Disease
DX: I48.91 Unspecified atrial fibrillation (principal); I63.239 Cerebral infarction due to unspecified occlusion or stenosis of unspecified carotid artery; I10 Essential (primary) hypertension; G47.33 Obstructive sleep apnea (adult) (pediatric)
CPT/HCPCS: 78452; 93017; 93306

== ENCOUNTER → 2019-12-10 | Outpatient (CLI) | payer MEDICARE, OTHER ==
[~2019-12-10] MED LIST changes: +ACHD5005 PO; -CATHETER FLUSH 10 ML SYR IV PRN; +HOLD METFORMIN - RECEIVED CONTRAST 20 ML VIAL IV SCH; -HYDR-3812 PO; +IOHEXOL 350 MG/ML 100 ML (OMNIPAQUE 350) VIAL IV ONE; +NS 100 ML (IVPB) BAG IV ONE; -OMEP20CA13 PO; +OMEP20CA18 PO; -REGADENOSON 0.4 MG/5 ML SYR (LEXISCAN) IV ONE
[2019-12-10 10:01] LABS: BUN/CREATININE RATIO 32; CREATININE SERUM 0.77 MG/DL (0.60-1.30); GFR ESTIMATED > 60
--- NOTE | 2019-12-10 10:48 | Diagnostic Imaging Report ---
PROCEDURE: CT chest with contrast only. TECHNIQUE: Multiple contiguous axial images were obtained through the chest after administration of intravenous contrast. Auto Exposure Controls were utilized during the CT exam to meet ALARA standards for radiation dose reduction. DATE: December 10, 2019. COMPARISON: Chest radiographs May 30, 2019. CT chest November 29, 2018. INDICATION: 73-year-old female, cough since October. FINDINGS: There is no identified pulmonary nodule. There is no lung mass. There is no focal airspace consolidation. There is no pneumothorax. There is no pleural effusion. The central airways are patent. There is no identified pulmonary embolus. The main pulmonary artery is normal in caliber. The heart is not enlarged. There is no pericardial effusion. There are atherosclerotic calcifications. There is no identified abnormally enlarged mediastinal, hilar, or axillary lymph node which meets CT size criteria for adenopathy. There is diffuse fatty infiltration of the liver. The patient is status post cholecystectomy. There is a 7 mm low-attenuation left renal lesion on axial image 118 which is too small to characterize. There is a very small hiatal hernia. There is no identified acute bony abnormality. IMPRESSION: CT CHEST. 1. No identified acute cardiopulmonary abnormality. 2. Diffuse fatty infiltration of the liver. Dictated by: Dictated on workstation # [id number]
== END ==
LOC: RAD 09:24
PROVIDERS: ATTEND Nurse Practitioner Family
DX: J45.909 Unspecified asthma, uncomplicated (principal); K76.0 Fatty (change of) liver, not elsewhere classified; G47.33 Obstructive sleep apnea (adult) (pediatric); Z90.49 Acquired absence of other specified parts of digestive tract
CPT/HCPCS: 36415; 71260; 82565; 84520

== ENCOUNTER → 2020-04-13 | Outpatient (CLI) | payer MEDICARE, OTHER ==
[~2020-04-13] MED LIST changes: -HOLD METFORMIN - RECEIVED CONTRAST 20 ML VIAL IV SCH; -IOHEXOL 350 MG/ML 100 ML (OMNIPAQUE 350) VIAL IV ONE; -NS 100 ML (IVPB) BAG IV ONE
--- NOTE | 2020-04-13 12:17 | Diagnostic Imaging Report ---
PROCEDURE: US Renal Bilateral. INDICATION: Left renal lesion demonstrated on CT chest. TECHNIQUE: Multiple real-time grayscale sonographic images were obtained of the kidneys. CORRELATION: CT chest 12/10/2019 FINDINGS: RIGHT KIDNEY: 9.8 x 5.1 x 6.1 cm. Relatively small rounded hypoechoic area superior pole favors probable cyst, 12 x 12 x 17 mm. Renal parenchyma otherwise unremarkable. No hydronephrosis. LEFT KIDNEY: 9.9 x 4.5 x 5.8 cm. There is a hypoechoic area superior pole with central echogenic foci, perhaps calcification present measuring 1.5 x 1.6 x 1.8 cm. Renal parenchyma and collecting system otherwise unremarkable. URINARY BLADDER: Not imaged. IMPRESSION: 1. Hypoechoic masses both kidneys. Favor probable cyst. One on the right has a central echogenic foci that could be reflective of calcification. This is not suggested on recent CT chest examination. Short-term followup repeat ultrasound and/or contrast-enhanced CT and/or MRI would be recommended approximately 4-6 months. Carol 2F. Dictated by: Dictated on workstation # [id number]
== END ==
LOC: RAD 10:32
PROVIDERS: ATTEND Family Medicine
DX: N28.89 Other specified disorders of kidney and ureter (principal)
CPT/HCPCS: 76770

== ENCOUNTER → 2020-08-25 | Outpatient (CLI) | payer MEDICARE, OTHER ==
[~2020-08-25] MED LIST changes: +GADOBUTROL 10 MMOL/10 ML (GADAVIST) VIAL IV ONE; -PANT40TA3 PO; +PANT40TA52 PO
[2020-08-25 09:15] LABS: CREATININE SERUM 1.02 MG/DL (0.60-1.30)
--- NOTE | 2020-08-25 12:00 | Diagnostic Imaging Report ---
EXAMINATION: MRI of the abdomen with and without contrast. TECHNIQUE: Multiplanar, multisequence MR images of the abdomen were obtained with and without intravenous contrast. HISTORY: Renal cyst COMPARISON: Chest CT dated 12/10/2019 FINDINGS: Liver is steatotic. No focal liver lesions are seen. No suspicious liver lesions are seen. No surface nodularity. Gallbladder is normal. There is no biliary ductal dilation. Pancreas is normal. Spleen is normal. Adrenal glands are normal. There is an 11 mm simple cyst in the left kidney without suspicious features. There is a tiny hemorrhagic cyst in the right kidney. Visualized bowel is normal. No lymphadenopathy is seen. Lung bases are clear. No osseus lesions are seen. IMPRESSION: 1. Simple cyst in the left kidney and tiny hemorrhagic cyst in the right kidney. No suspicious renal lesions or follow-up required. Dictated by: Dictated on workstation # [id number]
== END ==
LOC: RAD 08:47
PROVIDERS: ATTEND Family Medicine
DX: N28.1 Cyst of kidney, acquired (principal)
CPT/HCPCS: 36415; 74183; 82565; 84520

== ENCOUNTER → 2021-09-28 | Outpatient (CLI) | payer MEDICARE, OTHER ==
[~2021-09-28] MED LIST changes: -GADOBUTROL 10 MMOL/10 ML (GADAVIST) VIAL IV ONE
--- NOTE | 2021-09-28 12:42 | Diagnostic Imaging Report ---
INDICATION: Routine screening. COMPARISON: 03/05/2015 and 11/10/2011. TECHNIQUE: 2D and 3D bilateral screening mammography was performed with CAD. FINDINGS: Scattered fibroglandular densities are identified bilaterally. No mass or malignant-appearing microcalcifications are seen. There are benign calcifications present. The axillae are unremarkable. IMPRESSION: No mammographic features suspicious for malignancy are identified. ACR BI-RADS Category 2: Benign findings. Result letter will be mailed to the patient. Note: At least 10% of breast cancer is not imaged by mammography. Dictated by: Dictated on workstation # [id number]
--- NOTE | 2021-09-28 15:24 | Diagnostic Imaging Report ---
INDICATION: Postmenopausal COMPARISON: Baseline FINDINGS: AP Spine L1-L4: [BMD (g/cm2): 1.164] [T-Score: -0.3] [Z-Score: 0.8] [BMD Previous: NA] [BMD % Change: NA] LT Hip Neck: [BMD (g/cm2): 0.923] [T-Score: -0.8] [Z-Score: 0.6] LT Hip Total: [BMD (g/cm2):0.975] [T-Score:-0.3] [Z-Score: 0.9] [BMD Previous: NA] [BMD % Change: NA] RT Hip Neck: [BMD (g/cm2):0.843] [T-Score:-1.4] [Z-Score:0.0] RT Hip Total: [BMD (g/cm2):0.935] [T-score:-0.6] [Z-Score:0.6] [BMD Previous:NA] [BMD % Change:NA] *Indicates significant change from prior examination based on 95% confidence level. World Health Organization criteria for BMD interpretation classify patients as Normal (T-score at or above -1.0), Osteopenic (T-score between -1.0 and -2.5) or Osteoporotic (T-score at or below -2.5). LIMITATIONS AND MODIFICATION: None. FRACTURE RISK (FRAX SCORE): The ten year probability of (%): Major Osteoporotic Fracture: [9.8] Hip Fracture: [1.6] IMPRESSION: 1. Normal bone mineral density. 2. Baseline examination. 3. See below National Osteoporosis Foundation guidelines on when to potentially initiate pharmacologic therapy. Based on the National Osteoporosis Foundation Guidelines, pharmacologic treatment should be initiated in any of the following, unless clinical conditions suggest otherwise: * Any patient with prior fragility fracture of the hip or vertebrae. A spine fracture indicates 5X risk for subsequent spine fracture and 2X risk for subsequent hip fracture. * Osteoporosis (T-score <-2.5). * Postmenopausal women and men age 50 and older with low bone mass/osteopenia (T-score between -1.0 and -2.5) by DXA and 10-year major osteoporotic fracture greater than 20% or a 10-year probability of hip fracture greater than 3%. These fracture risks are supplied above in the FRAX score, if applicable. * Clinician judgement and/or patient preferences may indicate treatment for people with 10-year fracture probabilities above or below these levels. Dictated by: Dictated on workstation # [id number]
== END ==
LOC: RAD 09:30
PROVIDERS: ATTEND Nurse Practitioner Family
DX: Z12.31 Encounter for screening mammogram for malignant neoplasm of breast (principal); Z78.0 Asymptomatic menopausal state
CPT/HCPCS: 77063; 77067; 77080

== ENCOUNTER → 2021-10-25 | Outpatient (CLI) | payer MEDICARE, OTHER | LOC: LABNPT 05:48 | PROVIDERS: ATTEND Family Medicine | DX: R05.9 Cough, unspecified (principal); R09.81 Nasal congestion ==

== ENCOUNTER 2021-12-17 09:05 | Day surgery (SDC) | payer MEDICARE, OTHER ==
[~2021-12-17] VITALS: Ht 154.9 cm; Wt 86.6 kg
[2021-12-17] MEDS ORDERED: LACTATED RINGERS 1,000 ML IV STA (09:12)
[2021-12-17] MEDS ORDERED: HURRICAINE EXT TUBE (BENZOCAINE) XX PRN (09:15)
[2021-12-17] MEDS ORDERED: LIDOCAINE JELLY 2% 6 ML SYRINGE MM PRN (09:15)
[2021-12-17 09:20] VITALS: BP 135/65
--- NOTE | 2021-12-17 09:23 | Progress Note-Pre Operative ---
Pre-Operative Progress Note H&P Reviewed The H&P was reviewed, patient examined and no changes noted. Date Seen by Provider: Dec 17, 2021 Time Seen by Provider: 09:15 Date H&P Reviewed: Dec 17, 2021 Time H&P Reviewed: 09:15 Pre-Operative Diagnosis: GERD, screening o GUS MONTALVO MD Dec 17, 2021 09:23
--- NOTE | 2021-12-17 09:24 | Discharge Inst-Surgical ---
D/C Lap Instructions-SELVIN Follow Up Activity as tolerated High Fiber Diet 25g or more per day Avoid Alcohol, Caffeine, Spicy [place] and Acid foods. Drink 64 fluid oz or more of fluids per day. Symptoms to Report: Fever over 101 degree F, Nausea/Vomiting If any problems/questions: Contact your physician or go to Emergency Room GUS MONTALVO MD Dec 17, 2021 09:24
[2021-12-17] MEDS ORDERED: ONDANSETRON 4 MG/2 ML (SDV) Z0FRAN IVP PRN (09:30)
[2021-12-17] MEDS ORDERED: ONDANSETRON 4 MG (ZOFRAN) ORAL DISSOLVE TAB PO PRN (09:30)
[2021-12-17] MEDS ORDERED: BUDE10.2 IH (09:45)
[2021-12-17] MEDS ORDERED: OMEP20TA7 PO (09:45)
[2021-12-17] MEDS ORDERED: RT-ALBUINH IH (09:45)
[2021-12-17] MEDS ORDERED: MV-M1TAB20 PO (09:45)
[2021-12-17] MEDS ORDERED: PROPOFOL INJECTION 50 ML IV ONE (10:25)
[2021-12-17 11:20] VITALS: BP 168/72
--- NOTE | 2021-12-17 11:38 | Progress Note-Post Operative ---
Post-Operative Progess Note Surgeon (s)/Gas Torch [place]razier (s) Surgeon GUS MONTALVO MD Gas [place]ch [place]: none Pre-Operative Diagnosis GERD, screening colo Post-Operative Diagnosis reflux esophagitis(grade B), moderate HH(3.5cm), mild-moderate gastritis. chronic stage 2 ext and int hemorrhoids, mild-mod sigmoid diverticulosis. Procedure & Operative Findings Date of Procedure 12/17/21 Procedure Performed/Findings EGD with bx. colonoscopy. Anesthesia Type mac Estimated Blood Loss Estimated blood loss (mL): minimal Specimens/Packing Specimens Removed ge polyp, ge jxn, antrum GUS MONTALVO MD Dec 17, 2021 11:38
[2021-12-17 12:00] VITALS: BP 135/90
--- NOTE | 2021-12-17 13:42 | Anesthesia-General Post-Op ---
MAC Patient Condition Mental Status/LOC: Same as Preop Cardiovascular: Satisfactory Nausea/Vomiting: Absent Respiratory: Satisfactory Pain: Controlled Complications: Absent Post Op Complications Complications None Follow Up Care/Instructions Patient Instructions None needed. Anesthesiology Discharge Order Discharge Order Patient is doing well, no complaints, stable vital signs, no apparent adverse anesthesia problems. No complications reported per nursing. ARAMIS FLORES CRNA Dec 17, 2021 13:42
--- NOTE | 2021-12-17 15:20 | HISTORY AND PHYSICAL ---
DATE OF SERVICE: ATTENDING PRIMARY CARE PHYSICIAN: Dr. Priyanka Be. HISTORY OF PRESENT ILLNESS: The patient is a 75-year-old female who is known to us. She was initially seen for reflux and regurgitation as well as dysphagia and underwent an EGD in 05/2016 where she was found to have reflux esophagitis grade II and a hiatal hernia approximately 2 to 3 mm in size. She continued to have some discomfort and an ultrasound of the gallbladder was performed, which did show a small polyp of the gallbladder. She then underwent a HIDA scan, which did show an ejection fraction of 66% as well as abnormal filling of the gallbladder related to chronic cholecystitis. She then underwent a laparoscopic cholecystectomy on 02/24/2016. She was then seen again in 01/2018 again for worsening reflux as well as a cough and dysphagia. She did undergo another EGD with biopsy and balloon dilatation. She was found to have reflux esophagitis class B, mild distal esophageal stricture, hiatal hernia approximately 3 cm in size, moderate severity gastritis. We had then seen her again in 06/2018 for an incarcerated ventral abdominal incisional hernia. She underwent an open ventral abdominal incisional hernia repair with mesh on 06/04/2018. She was found to have an incarcerated ventral abdominal incisional hernia from a previous port site incision. There was only omentum within the hernia sac with no viable ischemic changes. On today's visit, she reports that she is in need of a screening colonoscopy. Her last one was in 2009, which was normal at that time. She denies any diarrhea or constipation as well as no blood in her stool. She does report a sister with a history of colon cancer. She denies any abdominal pain. PAST MEDICAL HISTORY: Atrial fibrillation, arthritis, hypertension, gastroesophageal reflux disease, hiatal hernia, basal cell skin cancer of the nose. PAST SURGICAL HISTORY: Total hysterectomy in 1975, bilateral ankle surgery, left knee bursectomy, reconstructive nasal surgery for basal cell skin cancer, laparoscopic cholecystectomy in 05/2016, incisional hernia repair on 06/04/2018, shoulder surgery. ALLERGIES: NO KNOWN DRUG ALLERGIES. MEDICATIONS: Omeprazole, Symbicort, ProAir, vitamin D, hydrochlorothiazide, Eliquis, losartan, potassium. FAMILY HISTORY: Father, myocardial infarction at age 62 and DVT. Mother, hypertension and abdominal aortic aneurysm. Sister, diabetes, hypertension, DVT of the right lower extremity, colon cancer. SOCIAL HISTORY: Negative for tobacco, smoke, social for alcohol. VITAL SIGNS: Blood pressure is 140/80. Current weight is 191 pounds at 5 feet 1 inch. REVIEW OF SYSTEMS: Well-nourished female, in no acute distress. She is not experiencing any shortness of breath or difficulty breathing. No chest pain, palpitations or diaphoresis. No nausea, vomiting or abdominal pain. No diarrhea or constipation. No red blood per rectum. No dark tarry stools. No fever or chills. No recent inadvertent weight loss. All other review of systems negative. PHYSICAL EXAMINATION: CHEST: Clear. Good breath sounds bilaterally. HEART: Regular, no murmurs. EXTREMITIES: No lower extremity edema. Negative Homans sign. HEENT: No scleral icterus. NECK: No cervical lymphadenopathy. ABDOMEN: Soft, nontender, nondistended. SKIN: Warm, dry and pink. NEUROLOGIC: Awake, alert and oriented x3. ASSESSMENT AND PLAN: A 75-year-old female who is in need of a screening colonoscopy, who also has episodes of reflux and a family history of colon cancer with her sister having the disease. At this time, we will proceed with scheduling her for a screening colonoscopy as well as an EGD. The risks and benefits of the procedure as well as the procedure and home care instructions were explained to the patient. The patient verbalized understanding of instructions and agrees to proceed as planned. Job ID: [id number] DocumentID: [id number] Dictated Date: 11/24/2021 09:19:38 Coat Hanger Shaper Machine Operator Date: 11/24/2021 09:48:18 Dictated By: YARY GARCIA APRN
--- NOTE | 2021-12-17 16:00 | OPERATIVE REPORT ---
DATE OF SERVICE: 12/17/2021 ATTENDING PRIMARY CARE PHYSICIAN: Priyanka Be MD PREOPERATIVE DIAGNOSES: Gastroesophageal reflux disease, screening colonoscopy with family history of colon cancer. POSTOPERATIVE DIAGNOSES: Reflux esophagitis, [place] grade B with a small polyp along the gastric side, moderate size hiatal hernia approximately 3.5 cm in size, mild gastritis, chronic stage II external and internal hemorrhoids, mild sigmoid diverticulosis. PROCEDURE: EGD with biopsy, colonoscopy. SURGEON: Gus Montalvo MD. ANESTHESIA: Monitored anesthesia care. ESTIMATED BLOOD LOSS: Minimal. FINDINGS: Reflux esophagitis, [place] grade B with a small polyp along the gastric side, moderate size hiatal hernia approximately 3.5 cm in size, mild gastritis, chronic stage II external and internal hemorrhoids, mild sigmoid diverticulosis. DISPOSITION: The patient tolerated the procedure well. INDICATIONS: The patient is a 75-year-old female who has had issues with reflux in the past. She states that this has increased in severity over time. She is also in need of a screening colonoscopy. Her last one was in 2009. She does have a first-degree family history of colon cancer with her sister having the disease. DESCRIPTION OF PROCEDURE: The patient was brought to the endoscopy suite, laid in left lateral decubitus position. After adequate IV pain and sedative medications and monitored anesthesia care, the mouthpiece was applied. The endoscope was placed in the mouth, visualized the pharynx and hypopharyngeal region. Vocal cords, epiglottis and vallecula identified and appeared to be normal and the endoscope was gently abated esophageal opening and esophagus insufflated. The endoscope was then advanced to the first, second and third portion of esophagus at the level of the GE junction, reflux esophagitis, [place] grade B identified. There was also a small polyp identified on the gastric side of the GE junction. A biopsy was taken of this with forceps with visualization of good hemostasis. A biopsy was also taken of the GE junction with forceps again with good hemostasis. The endoscope was then advanced into the stomach and endoscope retroflexed, visualizing a moderate size hiatal hernia approximately 3.5 cm in size. There was a mild to moderate gastritis. No formal ulcerations, polyps, or any neoplasms. A biopsy was taken of the antrum to rule out H. pylori with visualization of good hemostasis. The endoscope was then advanced through the pylorus and first and second portions of the duodenum, which appeared normal. The endoscope was then slowly withdrawn while taking a second look and suctioning of residual air with no additional findings. A digital rectal examination was performed, which revealed chronic stage II external and internal hemorrhoids, not actively edematous nor inflamed and no bleeding. Normal sphincter tone was felt and there were no palpable masses. The endoscope was then intubated into the anus and rectum gently insufflated. The endoscope was then advanced to the valves of Dennis of the rectum with no polyps or any neoplasms identified. We then proceeded to sigmoid colon where mild to moderate sigmoid diverticulosis identified. The endoscope was then advanced to the remainder of the descending, transverse and ascending colon to the cecum, which were normal. There were no polyps or any neoplasms identified. The endoscope was then slowly withdrawn while taking a second look and suctioning of residual air with no additional findings. The patient tolerated the procedure well. We will recommend necessary lifestyle and dietary accommodation including small and more frequent meals, avoiding to eating at night as well as head elevation while lying supine. She also needs to avoid caffeinated beverages, spicy, greasy and acidic foods. We will also switch her from omeprazole to Protonix 40 mg daily. We will also recommend a high-fiber diet with a fiber supplement, which should equal or exceed 25 grams daily as well as significant amounts of water to promote soft stools on a daily basis. Due to her first-degree family history of colon cancer, we will recommend a followup colonoscopy in approximately 5 years. Job ID: [id number] DocumentID: [id number] Dictated Date: 12/17/2021 11:29:14 Buyer Agent Date: 12/17/2021 15:59:53 Dictated By: GUS MONTALVO MD
== END 2021-12-17 13:00 | disposition home or self-care (01) ==
LOC: ENDO 09:05
PROVIDERS: ATTEND Surgery
DX: Z12.11 Encounter for screening for malignant neoplasm of colon (principal); K21.00 Gastro-esophageal reflux disease with esophagitis, without bleeding; K31.7 Polyp of stomach and duodenum; K44.9 Diaphragmatic hernia without obstruction or gangrene; K29.50 Unspecified chronic gastritis without bleeding; K64.1 Second degree hemorrhoids; K64.4 Residual hemorrhoidal skin tags; K57.30 Diverticulosis of large intestine without perforation or abscess without bleeding; Z80.0 Family history of malignant neoplasm of digestive organs
CPT/HCPCS: 43239; G0105

== ENCOUNTER → 2022-04-12 | Outpatient (CLI) | payer MEDICARE, OTHER ==
[~2022-04-12] MED LIST changes: +BUDE10.2 IH; +MV-M1TAB20 PO; +OMEP20TA56 PO; -OMEP20TA7 PO; +RT-ALBUINH IH
== END ==
LOC: CARD 13:07
PROVIDERS: ATTEND Internal Medicine Cardiovascular Disease
DX: I35.1 Nonrheumatic aortic (valve) insufficiency (principal); I48.0 Paroxysmal atrial fibrillation
CPT/HCPCS: 93225; 93226; 93306

== ENCOUNTER → 2022-04-19 | Outpatient (CLI) | payer MEDICARE, OTHER ==
[~2022-04-19] MED LIST changes: +REGADENOSON 0.4 MG/5 ML SYR (LEXISCAN) IV ONE
[2022-04-19] MEDS: CATHETER FLUSH 10 ML SYR IVP PRN ×2 (08:07→09:36)
[2022-04-19 09:35] VITALS: BP 176/74
--- NOTE | 2022-04-20 13:42 | STRESS TEST ---
DATE OF SERVICE: 04/19/2022 RESTING AND POST REGADENOSON TECHNETIUM-99M TETROFOSMIN SPECT CT IMAGING ORDERING PHYSICIAN: Dr. Hudson. PRIMARY PHYSICIAN: Dr. Be. CLINICAL DIAGNOSIS: Hot sweats. Baseline images were carried out after injection of 10.39 mCi of technetium-99m Tetrofosmin. This was followed by 0.4 mg regadenoson and 29.5 mCi of technetium-99m Tetrofosmin for stress imaging. The electrocardiogram showed sinus rhythm at baseline. It did not change significantly with the regadenoson infusion. The patient tolerated the procedure well. Review of images at rest and following stress does not indicate any significant perfusion defects consistent with myocardial ischemia or infarction. Gated images show normal global left ventricular systolic function with normal regional wall motion. Left ventricular ejection fraction is calculated to be 79%. CONCLUSIONS: 1. No evidence of any significant myocardial ischemia or infarction on this study. 2. Normal regional wall motion. 3. Normal global left ventricular systolic function with a calculated ejection fraction 79%. Job ID: [id number] DocumentID: [id number] Dictated Date: 04/20/2022 09:44:02 Collision Center Manager Date: 04/20/2022 13:41:44 Dictated By: ALEXANDRA HUDSON MD, MA, FACP, FACC,
== END ==
LOC: CARD 07:49
PROVIDERS: ATTEND Internal Medicine Cardiovascular Disease
DX: R61 Generalized hyperhidrosis (principal)
CPT/HCPCS: 78452; 93017; A9502

== ENCOUNTER → 2022-07-14 | Outpatient (CLI) | payer MEDICARE, OTHER ==
[~2022-07-14] MED LIST changes: -REGADENOSON 0.4 MG/5 ML SYR (LEXISCAN) IV ONE
--- NOTE | 2022-07-14 12:05 | Diagnostic Imaging Report ---
PROCEDURE: Pelvic comp/transvaginal sonogram. TECHNIQUE: Complete transabdominal and transvaginal pelvic ultrasound was performed. In addition, limited pelvic Doppler was performed. INDICATION: Pelvic mass noted on outside CT. COMPARISON: The outside study is not available for direct comparison. FINDINGS: Uterus is surgically absent. Right ovary cannot be visualized. Left ovary measures 1.5 x 1.7 x 1.2 cm and demonstrates blood flow. There is a large cyst in the right adnexa measuring 5.1 x 5.0 x 5.2 cm. No free fluid is identified. IMPRESSION: 1. Status post hysterectomy. 2. Approximately 5 cm simple-appearing cyst in the right adnexa. No other abnormalities detected. Dictated by: Dictated on workstation # [id number]
== END ==
LOC: RAD 10:53
PROVIDERS: ATTEND Nurse Practitioner Family
DX: N83.8 Other noninflammatory disorders of ovary, fallopian tube and broad ligament (principal); Z90.710 Acquired absence of both cervix and uterus
CPT/HCPCS: 76830; 76856

== ENCOUNTER → 2022-07-26 | Outpatient (CLI) | payer MEDICARE, OTHER ==
--- NOTE | 2022-07-26 09:03 | Diagnostic Imaging Report ---
PROCEDURE: MRI right joint upper extremity without contrast. TECHNIQUE: Multiplanar, multisequence non contrast-enhanced MRI of the right upper extremity was accomplished. INDICATION: Fell 2 weeks ago. Continued shoulder pain. EXAMINATION: Right shoulder MRI without contrast 07/26/2022. FINDINGS: There is marked T2 hyperintensity throughout the anterior and inferior aspect of the glenoid with surrounding soft tissue edema. Minimal T2 hyperintensity seen along the superolateral border of the humeral head most likely on a degenerative basis rather than a Hill-Sachs deformity. Correlate for any recent history of dislocation. There is a small joint effusion within the glenohumeral joint with fluid throughout the subdeltoid subacromial bursa. There is heterogeneous signal intensity throughout the supraspinatus and infraspinatus tendons consistent with tendinosis. A partial-thickness articular- sided tear along the far anterior supraspinatus tendon is suspected. No full-thickness tears or retraction appreciated. There is diffuse tendinosis throughout the subscapularis tendon as well. The long head of biceps tendon lies in the bicipital groove. It appears intact. Biceps tendon anchor intact. There is diffuse high signal throughout the posterior and superior labrum suspicious for a tear with abnormal signal intensity also seen throughout the anterior inferior labrum. Post-arthrogram imaging could confirm an underlying tear as clinically indicated. There is mild atrophy of the supraspinatus muscle. Remaining musculature appears maintained. The visualized axilla is unremarkable. IMPRESSION: 1. Abnormal signal intensity throughout the anterior inferior glenoid which could be due to bone contusion with a superimposed fracture not excluded on MRI. CT could provide further characterization if concern for an underlying fracture. 2. Diffuse abnormal signal intensity throughout the labrum suspicious for a labral tear. Post-arthrogram imaging could provide further characterization as clinically indicated. 3. Diffuse tendinosis throughout the supraspinatus, infraspinatus and subscapularis tendons with a small partial-thickness articular-sided tear of the anterior supraspinatus tendon. 4. Fluid throughout the subdeltoid subacromial bursa suggestive of bursitis. Dictated by: Dictated on workstation # [id number]
== END ==
LOC: RAD 07:39
PROVIDERS: ATTEND Nurse Practitioner Family
DX: M75.112 Incomplete rotator cuff tear or rupture of left shoulder, not specified as traumatic (principal); W19.XXXA Unspecified fall, initial encounter
CPT/HCPCS: 73221

== ENCOUNTER → 2022-09-29 | Outpatient (CLI) | payer MEDICARE, OTHER ==
[~2022-09-29] MED LIST changes: +ALBU8.5H6 IH; -RT-ALBUINH IH
--- NOTE | 2022-09-29 19:27 | Diagnostic Imaging Report ---
Clinical indication: Patient with right shoulder pain and neck pain. Patient fell in July 2022. Exam: MRI of the cervical spine performed without IV contrast. Sequences include sagittal T1, sagittal T2, sagittal T2 fat-sat, and axial T2. Comparison: None. Findings: There is no acute cervical spine fracture. There is Modic type II degenerative signal changes seen from the C5-T1 levels. Limited visualization of posterior fossa is unremarkable. Cervical spinal cord is normal cord caliber with no abnormal signal. There are hypertrophic spurs and facet arthropathy seen. There is loss of cervical lordosis seen centered at the C5-C6 level. C1-C2: There is no significant central canal narrowing. C2-C3: There is [id number] bilateral facet arthropathy. There is no significant central spinal canal or neural foramen narrowing. There is mild ligamentum flavum buckling. C3-C4: There is grade 1 anterolisthesis C3 on C4. There is mild bilateral facet arthropathy. There is moderate right neural foramen narrowing and mild left neural foramen narrowing. There is no significant central canal narrowing. C4-C5: There is grade 1 anterolisthesis C4 on C5. There is diffuse disk bulge and moderate loss of disk space height. There is at least mild bilateral neural foramen narrowing. There is mild lateral facet arthropathy/hypertrophy. C5-C6: There is diffuse disk bulge with severe loss of disk space height and bilateral uncinate spurs. There is mild central canal stenosis. There is moderate bilateral neural foramen narrowing. C6-C7: There is diffuse disk bulge with diffuse disk bulge with severe loss of disk space height. There is endplate irregularity. There are uncinate spurs. There is moderate to severe central canal stenosis. There is no significant left neural foramen narrowing and severe right neural foramen narrowing. C7-T1: There is a diffuse disk bulge with moderate loss of disk space height. There is no significant central canal stenosis. There is moderate bilateral neural foramen narrowing. IMPRESSION: 1: There is no acute cervical spine fracture. 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 Dictated by: Dictated on workstation # [id number]
== END ==
LOC: RAD 12:16
PROVIDERS: ATTEND Nurse Practitioner Family
DX: M50.10 Cervical disc disorder with radiculopathy, unspecified cervical region (principal)
CPT/HCPCS: 72141